=== PATIENT | male | born 1945 | race Caucasian/White ===

== ENCOUNTER → 2017-09-24 08:19 | Outpatient (CLI) | payer MEDICARE, BC, OTHER, SELFPAY ==
--- NOTE | 2017-09-24 08:25 | DI.RAD.S_ITS ---
PROCEDURE: XR KNEE RT 3V INDICATIONS: RIGHT KNEE PAIN TECHNIQUE: 3 views of the knee were acquired. COMPARISON: None. FINDINGS: Bones: No fractures or dislocations. No suspicious bony lesions. Marginal bone spurs with no apparent joint space narrowing. Soft tissues: Indeterminate for joint effusion. Possible Saucedo's cyst or other mass in the popliteal fossa. No suspicious soft tissue calcifications. IMPRESSION: 1. Marginal bone spurs indicating mild osteoarthritis. 2. Possible joint effusion, indeterminant. Possible Saucedo's cyst or other popliteal mass. Suggest limited lower extremity ultrasound. Dictated by: Sudarshan Walls M.D. on 09/24/2017 at 9:02 Approved by: Sudarshan Walls M.D. on 09/24/2017 at 9:04
[2017-09-24 10:47] LABS: BUN Creatinine Ratio 10.9 (6-22); Blood Urea Nitrogen 12 mg/dL (9-20); Calcium 9.2 mg/dL (8.4-10.2); Carbon Dioxide 26 mmol/L (22-32); Chloride 105 mmol/L (98-107); Cholesterol 202 mg/dL (140-199); Estimated Glomerular Filt Rate > 60.0 mL/min (>60); Glucose 109 mg/dL (80-110); HDL Cholesterol 49 mg/dL (40-60); HEMOLYSIS < 15 (0-50); LDL Cholesterol Calculated 121 mg/dL (<100); Potassium 4.7 mmol/L (3.4-5.1); Sodium 143 mmol/L (137-145); Triglycerides 161 mg/dL (35-150)
[2017-09-24 11:33] LABS: Vitamin B12 220 pg/mL (239-931)
== END ==
PROVIDERS: Family Provider Internal Medicine; PCP Internal Medicine; Visit Provider Internal Medicine
DX: I10 Essential (primary) hypertension (principal); E78.00 Pure hypercholesterolemia, unspecified; E53.8 Deficiency of other specified B group vitamins; M25.561 Pain in right knee
CPT/HCPCS: 36415; 73562; 80048; 80061; 82607

== ENCOUNTER → 2018-07-11 10:43 | Outpatient (CLI) | payer MEDICARE, BC, OTHER, SELFPAY ==
--- NOTE | 2018-07-11 | DI.RAD.S_ITS ---
PROCEDURE: XR KNEE RT 1TO2V INDICATIONS: RIGHT AND LEFT KNEE PAIN TECHNIQUE: 2 views of the right knee were acquired. COMPARISON: [facility], CR, XR KNEE RT 3V, 09/24/2017, 8:22. FINDINGS: Bones: No fractures or dislocations. No suspicious bony lesions. There is minimal thinning of the lateral compartment joint interspace consistent with minimal degenerative osteoarthritis but no joint effusion or intra-articular loose body is seen and no trauma is found. Soft tissues: No joint effusion. No suspicious soft tissue calcifications. IMPRESSION: Minimal degenerative change, no trauma or effusion seen. Dictated by: Aamir Kent M.D. on 07/11/2018 at 11:30 Approved by: Aamir Kent M.D. on 07/11/2018 at 11:31
--- NOTE | 2018-07-11 | DI.RAD.S_ITS ---
PROCEDURE: XR KNEE LT 1TO2V INDICATIONS: RIGHT AND LEFT KNEE PAIN TECHNIQUE: 2 views of the left knee were acquired. COMPARISON: [facility], CR, XR KNEE RT 3V, 09/24/2017, 8:22. FINDINGS: Bones: No fractures or dislocations. No suspicious bony lesions. Soft tissues: No joint effusion. No suspicious soft tissue calcifications. IMPRESSION: No acute disease, shortness of knee pain not found. No significant joint space narrowing or effusion identified. Dictated by: Aamir Kent M.D. on 07/11/2018 at 11:31 Approved by: Aamir Kent M.D. on 07/11/2018 at 11:32
== END ==
PROVIDERS: Family Provider Internal Medicine; PCP Internal Medicine; Visit Provider Internal Medicine
DX: M25.561 Pain in right knee (principal); M25.562 Pain in left knee
CPT/HCPCS: 73560

== ENCOUNTER → 2018-08-09 13:21 | Outpatient (CLI) | payer MEDICARE, BC, OTHER, SELFPAY ==
--- NOTE | 2018-08-09 | DI.NM.S_ITS ---
PROCEDURE: NM OLIVER PERF SPECT REST & STR Rest and exercise myocardial perfusion SPECT with gated imaging and ejection fraction RADIOPHARMACEUTICAL: 19.5 mCi Tc-99m sestamibi IV at rest and 26.9 mCi Tc-99m sestamibi IV at peak exercise. A two day-protocol was performed. INDICATIONS: CHEST PAIN TECHNIQUE: Radiopharmaceutical was injected at peak stress test, and also at rest. SPECT images were obtained. SPECT myocardial perfusion images were displayed in short axis, horizontal long axis, and vertical long axis views. Gated images were reviewed using [employer] software. COMPARISON: None. CARDIAC STRESS: A standard Mauro treadmill exercise tolerance test was performed by the patient under the supervision of an attending staff. The patient exercised for 5 minutes and 36 seconds; functional aerobic impairment (YSABEL) is +15% on sedentary scale. Hemodynamic data: There is normal heart rate response to exercise stress. Patient achieved 103% of maximum predicted heart rate at peak exercise. Hypertension at rest (BP 160/100mmHg) and borderline hypertensive response to exercise (BP 220/100mmHg). Symptoms: Patient denied chest pain during exercise. EKG: No diagnostic EKG changes of ischemia; no ectopy. FINDINGS: Raw data: There is good myocardial labeling by radiotracer. No significant motion artifacts. Kgty-fp-qiuea ratio is 0.29 (normal is less than 0.38 for sestamibi tracer, and less than 0.50 for thallium tracer). Left ventricle function: Gated images demonstrate normal left ventricle wall thickening. No segmental wall motion abnormality. No transient ischemic dilation; TID is 0.96 (normal less than 1.3). The left ventricle resting end-diastolic volume is 91 mL. Left ventricle stress ejection fraction is 71%; normal values are above 45%. Myocardial perfusion: There is normal distribution of activity in the left and right ventricular myocardium. No fixed or reversible perfusion defects. IMPRESSION: Low risk, normal treadmill nuclear stress test. Hypertension at rest and borderline hypertensive response to exercise. 1) No perfusion evidence of ischemia or infarction. 2) Normal left ventricular size, wall motion, and systolic function (EF post stress 71%). 3) No ECG evidence of ischemia. 4) No angina during the study. 5) Reduced exercise tolerance (7.0 METs, YSABEL +15%). Target heart rate achieved. 6) Hypertension at rest (BP 160/100mmHg) and borderline hypertensive response to exercise (BP 220/100mmHg). Dictated by: Jennifer Nunez MD on 08/13/2018 at 15:01 Approved by: Jennifer Nunez MD on 08/13/2018 at 15:07
--- NOTE | 2018-08-09 14:49 | P.PCN_ITS ---
Cardiac Stress Test Report Referral & Results Date Patient Seen: 08/09/18 Requesting provider: Xena Melara Indication: Chest pain Rest ECG: Unremarkable Procedure Note: Today following both written and verbal informed consent the patient was exercised according to a standard Mauro protocol patient went for a total of 5 minutes 36 seconds achieving a maximum heart rate of 150 to maximum systolic blood pressure of 220. This is approximately 7.0 METS. Exercise was terminated at this point because of targets were met. Patient was also given Cardiolite through a previously started Hep-Lock IV by the nuclear auxiliary operator approximately 1 minute prior to the cessation of exercise. There are no ST-T segment changes Patient quickly tachycardic and he was hypertensive throughout including at start Occasional multifocal PVCs and rare PACs were identified Functional aerobic impairment rated about 15% on the sedentary scale Impression: No ECG evidence of ischemia Borderline exercise capacity Hypertensive Please see perfusion imaging report as well Please note: Actual ECG tracings can be found in the PACS system.
== END ==
PROVIDERS: Family Provider Internal Medicine; PCP Internal Medicine; Visit Provider Internal Medicine
DX: R07.9 Chest pain, unspecified (principal); I10 Essential (primary) hypertension
CPT/HCPCS: 78452; 93016; 93017; 93018; A9502

== ENCOUNTER → 2019-01-31 09:45 | Outpatient (CLI) | payer MEDICARE, BC, OTHER, SELFPAY ==
[2019-01-31 11:03] LABS: BUN Creatinine Ratio 9.2 (6-22); Blood Urea Nitrogen 11 mg/dL (9-20); Calcium 9.6 mg/dL (8.4-10.2); Carbon Dioxide 27 mmol/L (22-32); Chloride 104 mmol/L (98-107); Cholesterol 229 mg/dL (140-199); Estimated Glomerular Filt Rate 59.2 mL/min (>60); Glucose 104 mg/dL (80-110); HDL Cholesterol 43 mg/dL (40-60); HEMOLYSIS < 15 (0-50); LDL Cholesterol Calculated 148 mg/dL (<100); Potassium 4.6 mmol/L (3.4-5.1); Sodium 140 mmol/L (137-145); Triglycerides 190 mg/dL (35-150)
[2019-01-31 11:51] LABS: Vitamin B12 907 pg/mL (239-931)
== END ==
PROVIDERS: PCP Internal Medicine; Visit Provider Internal Medicine
DX: Z12.5 Encounter for screening for malignant neoplasm of prostate (principal); E53.8 Deficiency of other specified B group vitamins; I10 Essential (primary) hypertension; E78.00 Pure hypercholesterolemia, unspecified
CPT/HCPCS: 36415; 80048; 80061; 82607; G0103

== ENCOUNTER → 2019-02-06 13:32 | Outpatient (CLI) | payer MEDICARE, BC, OTHER, SELFPAY ==
--- NOTE | 2019-02-06 | DI.US.S_ITS ---
PROCEDURE: US ARTERIAL DUPLEX LE LT INDICATIONS: PERIPHERAL VASCULAR DISEASE, UNSPECIFIED TECHNIQUE: Color and pulse Doppler interrogation was performed of the left lower extremity arterial system, with image documentation. COMPARISON: [facility], , ARTERIAL LOW.EXTREM.BILATERAL, 12/21/2014, 8:37. FINDINGS: Common femoral artery: 168 cm/sec, with triphasic flow. Deep femoral artery: 57 cm/sec, with biphasic flow. Proximal superficial femoral artery: 86 cm/sec, with triphasic flow. Mid superficial femoral artery: 90 cm/sec, with triphasic flow. Distal superficial femoral artery: 86 cm/sec, with triphasic flow. Popliteal artery: 56 cm/sec, with triphasic flow. Posterior tibial artery: 103 cm/sec, with biphasic flow. Anterior tibial artery/dorsalis pedis: 44 cm/sec, with triphasic flow. [place]-scale imaging description: Mild diffuse plaque IMPRESSION: No evidence of arterial insufficiency to the left lower extremity. Dictated by: Savanah Skelton M.D. on 02/06/2019 at 15:21 Approved by: Savanah Skelton M.D. on 02/06/2019 at 15:24
== END ==
PROVIDERS: PCP Internal Medicine; Visit Provider Internal Medicine
DX: I73.9 Peripheral vascular disease, unspecified (principal)
CPT/HCPCS: 93926

== ENCOUNTER 2019-07-28 22:36 | Emergency (ER) | payer MEDICARE, BC, OTHER, SELFPAY ==
[2019-07-28 22:36] VITALS: BP 139/65; PULSE 91; RESP 96; TEMP 36.5; O2SAT 96; BMI 30.1
--- NOTE | 2019-07-28 22:37 | ED.SYNCOPE ---
HPI - Syncope General Chief Complaint: Syncope Stated Complaint: Syncope Time Seen by Provider: 07/28/19 22:37 Source: patient and EMS Mode of arrival: EMS Limitations: no limitations History of Present Illness HPI narrative: 74-year-old male nonsmoker with history of hypertension and angina presents by EMS for evaluation of syncopal episode just prior to arrival. He was in the bathroom and heard a noise and found him slumped over the sink. He was still briefly unconscious when she arrived and then within a minute her to was back to his normal. EMS was activated and brought him here for evaluation. He states he has had diarrhea for the past 3 days and denies any recent travel, antibiotics, exposure to bad food or other ill persons. He denies any injury as a consequence of the fall. He states he was in his normal state of health prior to this episode. He denies any chest pain, palpitations or shortness of breath. MD complaint: loss of consciousness Onset (ago): minute(s) -: second(s) Prodromal symptoms: none Witnessed: no Context: standing up Current symptoms: none Treatments prior to arrival: IV fluids Related Data Home Medications Medication Instructions Recorded Confirmed amlodipine See Rx Instructions .ROUTE .COMPLEX 07/28/19 07/28/19 bimatoprost [Lumigan] See Rx Instructions .ROUTE .COMPLEX 07/28/19 07/28/19 brimonidine [Alphagan P] See Rx Instructions .ROUTE .COMPLEX 07/28/19 07/28/19 lisinopril See Rx Instructions .ROUTE .COMPLEX 07/28/19 07/28/19 Allergies Allergy/AdvReac Type Severity Reaction Status Date / Time No Known Drug Allergies Allergy Verified 07/28/19 22:57 Review of Systems Constitutional Constitutional: Denies chills, Denies fatigue, Denies fever(s), Denies frequent falls, Denies lethargy and Denies weakness Eyes Eyes: Denies change in vision, Denies eye discharge, Denies irritation and Denies loss of vision ENT Ears, Nose, Mouth, and Throat: Denies change in voice, Denies dizziness, Denies neck pain, Denies sore throat and Denies throat swelling Cardiovascular Cardiovascular: Denies chest pain, Denies irregular heart rhythm, Denies lightheadedness, Denies palpitations, Denies dyspnea, Denies dyspnea on exertion and Denies orthopnea Respiratory Respiratory: Denies cough, Denies dyspnea, Denies dyspnea on exertion and Denies wheezing Gastrointestinal Gastrointestinal: Denies abdominal pain, Denies change in bowel habits, Reports diarrhea, Denies nausea and Denies vomiting Musculoskeletal Musculoskeletal: Denies neck pain and Denies numbness Integumentary/Breasts Skin/Breast: Denies pruritus, Denies erythema, Denies rash and Denies wounds Neurologic Neurologic: Denies behavioral changes, Denies confusion, Denies dizziness, Denies frequent falls, Denies loss of vision, Denies numbness and Denies weakness Psychiatric Psychiatric: Denies anxiety, Denies behavioral changes, Denies confusion, Denies depression, Denies homicidal ideation and Denies suicidal ideation Endocrine Endocrine: Denies fatigue, Denies flushing and Denies palpitations Hematologic/Lymphatic Hematologic/Lymphatic: Denies easy bruising Allergic/Immunologic Allergic/Immunologic: Denies urticaria, Denies throat swelling and Denies wheezing Patient History Social History Smoking Status: Never smoker Smoking Status: Never smoker alcohol intake frequency: 0-2 drinks per day Substance Use Type: does not use Exam Narrative Exam Narrative: GENERAL: [74] year old patient appears stated age. Well-nourished, well-developed patient, in mild distress. HEAD: Atraumatic. Normocephalic. EYES: Pupils equal round and reactive. Extraocular motions intact. No scleral icterus. No injection or drainage. ENT: Dry mucous membranes Nose without bleeding, purulent drainage. Throat without erythema, tonsillar hypertrophy or exudate. Airway patent. NECK: Trachea midline. Non tender CARDIOVASCULAR: Regular rate and rhythm without murmurs, gallops, or rubs. RESPIRATORY: Clear to auscultation. Breath sounds equal bilaterally. No wheezes, rales, or rhonchi. GASTROINTESTINAL: Abdomen soft, non-tender, nondistended. EXTREMITIES: No edema or joint tenderness. BACK: Nontender without deformity or crepitance. No flank tenderness. NEURO: AOx3. SKIN: No rash or erythema of visible areas Initial Vital Signs Initial Vital Signs: Vital Signs Temperature 97.7 F 07/28/19 22:36 Pulse Rate 91 H 07/28/19 22:36 Respiratory Rate 96 H 07/28/19 22:36 Blood Pressure 139/65 07/28/19 22:36 Pulse Oximetry 96 07/28/19 22:36 Course Course Course Narrative: Patient able to ambulate through the department without difficulty. He feels at baseline and has no symptoms. Physical exam, labs and imaging are all very reassuring. Patient has had upwards of 5 days of diarrhea and had just walked to the bathroom when he had an episode. He denies any chest pain and has had no palpitations. He quickly returned to baseline after this episode. Other etiologies such as pulmonary embolism, cardiac arrhythmia considered but thought less likely given his history and physical. Extensive discussion regarding return precautions and the need for follow-up. Questions answered to his apparent satisfaction Orders Ordered: ED Orders 07/28/19 22:36 EKG-12 Lead Stat 07/28/19 22:44 Complete Blood Count AUTO DIFF Stat 07/28/19 23:10 Comprehensive Metabolic Panel Stat D Dimer Stat NT-proBNP (BNP-Adult 18+) Stat Troponin & CK Cardiac Panel Stat Discontinued Medications Sodium Chloride (Normal Saline 0.9%) 1,000 mls @ 1,000 mls/hr IV BOLUS ONE Stop: 07/28/19 23:35 Last Infusion: 07/29/19 00:34 Dose: 0 mls/hr Documented by: Infusion: 07/29/19 00:33 Dose: 0 mls/hr Documented by: Admin: 07/28/19 22:57 Dose: 1,000 mls/hr Documented by: NIKOLAS Vital Signs Vital signs: Vital Signs - 8 hr 07/28/19 22:36 07/28/19 23:27 07/28/19 23:56 Temperature 97.7 F Pulse Rate 91 H 80 86 Respiratory Rate 96 H 18 18 Blood Pressure 139/65 Blood Pressure [Left Arm] 116/63 141/70 H Pulse Oximetry 96 100 99 07/28/19 23:58 07/29/19 00:00 07/29/19 00:30 Temperature Pulse Rate 90 91 H 82 Respiratory Rate 18 18 20 Blood Pressure Blood Pressure [Left Arm] 157/68 H 132/68 152/72 H Pulse Oximetry 98 98 98 MDM - Syncope Lab Data Result diagrams: 07/28/19 22:44 07/28/19 23:10 Labs: Lab Results 07/28/19 07/28/19 07/28/19 Range/Units 22:44 23:10 23:10 WBC 6.7 (4.5-11.0) X10^3/uL RBC 4.56 (4.5-5.9) X10^6/uL Hgb 14.8 (13.5-17.5) g/dL Hct 42.9 (41-53) % MCV 94.0 (80-100) fL MCH 32.4 (26-34) PG MCHC 34.4 (30-36) % RDW 13.1 (11.6-14.8) % Plt Count 209 (150-400) X10^3/uL Neut % (Auto) 67.5 (50-75) % Lymph % (Auto) 24.5 L (25-40) % [place] % (Auto) 6.4 (3-14) % Eos % (Auto) 1.1 L (2-4) % Baso % (Auto) 0.5 (0-2) % Neut # (Auto) 4500 (2740-2900) /uL Lymph # (Auto) 1600 (9638-9830) /uL [place] # (Auto) 400 (0-900) /uL Eos # (Auto) 100 (0-450) /uL Baso # (Auto) 0 (0-100) /uL D-Dimer < 200 (<230) ng/mL Sodium 140 (137-145) mmol/L Potassium 3.4 (3.4-5.1) mmol/L Chloride 109 H (98-107) mmol/L Carbon Dioxide 22 (22-32) mmol/L BUN 10 (9-20) mg/dL Creatinine 1.13 (0.66-1.25) mg/dL Estimated GFR > 60.0 (>60) mL/min BUN/Creatinine Ratio 8.8 (6-22) Glucose 134 H (80-110) mg/dL Calcium 8.7 (8.4-10.2) mg/dL Total Bilirubin 0.4 (0.2-1.3) mg/dL AST 33 (17-59) IU/L ALT 26 (<50) IU/L Alkaline Phosphatase 63 (38-126) U/L Total Creatine Kinase 117 (55-170) U/L CK-MB (CK-2) 1.44 (<2.37) ng/mL CK-MB (CK-2) Rel Index 1.2 L (1.5-5.0) % Troponin I < 0.012 (0.01-0.034) ng/mL NT-Pro-B Natriuret Pep 26 (<125) pg/mL Total Protein 7.0 (6.3-8.2) g/dL Albumin 4.1 (3.5-5.0) g/dL Globulin 2.9 (1.7-4.1) g/dL Albumin/Globulin Ratio 1.4 (1.0-2.8) Point of Care Testing Glucose POC 97 Urine Dip Bedside Urine Glucose Negative Bedside Urine Bilirubin - Negative Bedside Urine Ketone +/- 5 Urine Specific [place] 1.020 Bedside Urine Occult Blood - Negative Bedside Urine pH 6.0 Bedside Urine Protein +/- 15 Bedside Urine Urobilinogen - Negative Bedside Urine Nitrite - Negative Bedside Urine Leukocytes - Negative Esterase ECG Data Attestation: I personally reviewed and interpreted this ECG as follows: Prior ECG tracings: not available for review Interpretation: NSR small Qs in inferior leads. No ST segmental elevations or depressions. Discharge Plan Departure Patient Disposition: Home Clinical Impression: Syncope due to orthostatic hypotension Discharge Date/Time: 07/29/19 00:55 Instructions: Fainting Activity Restrictions/Additional Instructions: *You have been diagnosed with [ syncope, likely from recent diarrhea and using toilet ] *What to do: *Take medications as directed *Follow up with your primary care provider in 2-3 days, call for an appointment. Let them know you were seen in the Emergency Department and that we ask that you be seen in follow up *Return to ER if you should have any new, worsening or concerning symptoms Prescriptions: No Action brimonidine [Alphagan P] 0.15 % drops See Rx Instructions .ROUTE .COMPLEX RF: 0 amlodipine 5 mg tablet See Rx Instructions .ROUTE .COMPLEX RF: 0 lisinopril 20 mg tablet See Rx Instructions .ROUTE .COMPLEX RF: 0 Lumigan 0.01 % drops See Rx Instructions .ROUTE .COMPLEX RF: 0 Referrals: Xena Melara MD [Primary Care Provider] -
[2019-07-28 22:53] LABS: Add Manual Diff / Slide Review NO; Basophils Absolute Auto 0 /uL (0-100); Basophils Percent Auto 0.5 % (0-2); Eosinophils Absolute Auto 100 /uL (0-450); Eosinophils Percent Auto 1.1 % (2-4); Hematocrit 42.9 % (41-53); Hemoglobin 14.8 g/dL (13.5-17.5); Lymphocytes Absolute Auto 1600 /uL (1100-4500); Lymphocytes Percent Auto 24.5 % (25-40); Mean Corpuscular HGB Conc 34.4 % (30-36); Mean Corpuscular Hemoglobin 32.4 PG (26-34); Monocytes Absolute Auto 400 /uL (0-900); Monocytes Percent Auto 6.4 % (3-14); Neutrophils Absolute Auto 4500 /uL (1500-7000); Neutrophils Percent Auto 67.5 % (50-75); Platelet Count 209 X10^3/uL (150-400); Red Blood Cell Count 4.56 X10^6/uL (4.5-5.9); Red Cell Distribution Width 13.1 % (11.6-14.8); White Blood Cell Count 6.7 X10^3/uL (4.5-11.0)
[2019-07-28] MEDS: SODIUM CHLORIDE 0.9% 1,000 ML 1000 ML IV (22:57)
[2019-07-28 23:27] VITALS: BP 116/63; PULSE 80; RESP 18; O2SAT 100
[2019-07-28 23:31] LABS: Alanine Aminotransferase 26 IU/L (<50); Albumin 4.1 g/dL (3.5-5.0); Albumin Globulin Ratio 1.4 (1.0-2.8); Alkaline Phosphatase 63 U/L (38-126); Aspartate Aminotransferase 33 IU/L (17-59); BUN Creatinine Ratio 8.8 (6-22); Bilirubin Total 0.4 mg/dL (0.2-1.3); Blood Urea Nitrogen 10 mg/dL (9-20); Calcium 8.7 mg/dL (8.4-10.2); Carbon Dioxide 22 mmol/L (22-32); Chloride 109 mmol/L (98-107); Creatine Kinase 117 U/L (55-170); Estimated Glomerular Filt Rate > 60.0 mL/min (>60); Globulin 2.9 g/dL (1.7-4.1); Glucose 134 mg/dL (80-110); HEMOLYSIS 15 (0-50); Potassium 3.4 mmol/L (3.4-5.1); Sodium 140 mmol/L (137-145)
[2019-07-28 23:43] LABS: NT-proBNP (BNP-Adult 18+) 26 pg/mL (<125); Troponin I < 0.012 ng/mL (0.01-0.034)
[2019-07-28 23:46] LABS: CKMB % Relative Index 1.2 % (1.5-5.0); Creatine Kinase MB 1.44 ng/mL (<2.37)
[2019-07-28 23:56] VITALS: BP 141/70; PULSE 86; RESP 18; O2SAT 99
[2019-07-28 23:58] VITALS: BP 157/68; PULSE 90; RESP 18; O2SAT 98
[2019-07-28 23:58] LABS: D Dimer < 200 ng/mL (<230)
[2019-07-29] VITALS: BP 132/68; PULSE 91; RESP 18; O2SAT 98
--- NOTE | 2019-07-29 00:16 | PC.NURSE ---
Pt denies any dizziness/feeling lightheaded or any sx's at this time during orthostatics.
--- NOTE | 2019-07-29 00:17 | PC.NURSE ---
Pt ambulated over 50 feet with steady gait, denies feeling dizzy/lightheaded during ambulation. Pt assisted back to ED stretcher and placed back on continuous cardiac, pulse-ox, and BP monitor. ED provider Dr. Uribe made aware.
[2019-07-29 00:30] VITALS: BP 152/72; PULSE 82; RESP 20; O2SAT 98
== END 2019-07-29 00:55 | disposition home or self-care (01) ==
PROVIDERS: Emergency Provider Emergency Medicine; PCP Internal Medicine
DX: I95.1 Orthostatic hypotension (principal)
CPT/HCPCS: 36415; 80053; 81003; 82550; 82553; 83880; 84484; 85025; 85379; 93005; 96360; 96361; 99284

== ENCOUNTER → 2019-08-31 14:14 | Outpatient (CLI) | payer MEDICARE, BC, OTHER, SELFPAY ==
[2019-09-01 07:57] LABS: COVID19 Sendout Not Detected (Not Detect)
== END ==
PROVIDERS: PCP Internal Medicine; Visit Provider Physician Assistant
DX: Z01.818 Encounter for other preprocedural examination (principal)
CPT/HCPCS: 87635

== ENCOUNTER 2019-09-03 13:24 | Day surgery (SDC) | payer MEDICARE, BC, OTHER, SELFPAY ==
[2019-09-03] VITALS (7 sets, daily range): BP systolic 114–134; BP diastolic 67–73; PULSE 76–85; RESP 10–20; TEMP 36.1–37.3; O2SAT 92–97; BMI 31.5
--- NOTE | 2019-09-03 | PATH_ITS ---
[facility] Accession Number: [id number] . 01 Material submitted: . PART A: colon - COLON POLYPS X3 TRANSVERSE COLON 65CM PART B: colon - RANDOM COLON BIOPSIES PART C: colon - RIGHT COLON POLYP . 01 Clinical history: . COLONOSCOPY . 02 Diagnosis: A. 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 No evidence of malignancy or high-grade dysplasia. . B. Random Colon, Biopsies: Colonic mucosa with no diagnostic abnormality. Negative for active, chronic, and microscopic colitis. Negative for dysplasia and malignancy. . C. Right Colon, Polyp, Biopsy: Tubular adenoma. V 09/04/2019 1403 Local . 02 Electronically signed: . Nida Rice MD, Pathologist NPI- [id number] . 01 Gross description: . Part A: COLON POLYPS X3 TRANSVERSE COLON 65CM: Received in formalin are multiple fragment(s) of guerrero, soft tissue measuring 1.0 x 0.8 x 0.3 cm in aggregate submitted entirely in 1 cassette(s) Part B: RANDOM COLON BIOPSIES: Received in formalin are 5 fragment(s) of guerrero, soft tissue measuring 1.0 x 0.2 x 0.1 cm to 0.2 x 0.2 x 0.1 cm submitted entirely in 1 cassette(s) Part C: RIGHT COLON POLYP: Received in formalin are 2 fragment(s) of guerrero, soft tissue measuring 0.3 x 0.3 x 0.2 cm to 0.3 x 0.2 x 0.1 cm submitted entirely in 1 cassette(s) /QBJ 09/04/2019 0153 Local . 02 Pathologist provided ICD-10: R19.7, D12.3, D12.6 . 02 CPT . 972247, 618330, 206271 Performed at: [address] [facility] [address] [address] [address], [place], [place] [id number] MD Kody Douglas MD Phone: [phone] Performed at: [address] [facility] [address] [address] [place], [place] [id number] MD Nida Rice MD Phone: [phone]
[2019-09-03] MEDS: SODIUM CHLORIDE 0.9% 1,000 ML 150 ML IV (14:03)
--- NOTE | 2019-09-03 14:42 | PM.PREOP ---
Pre-operative Note COVID-19 COVID-19 status: Negative Interval Note History & Physical reviewed/Exam performed by Physician: Yes Changes to H&P: No ASA Class (for procedural sedation): II
--- NOTE | 2019-09-03 14:43 | PM.OP.ENDO ---
Operative Date/Time/Diagnoses Date of procedure: 09/03/19 Time of procedure: 14:43 Pre-op diagnosis: See indication and findings Procedure & Clinicians Study performed: Colonoscopy with biopsy Same procedure as scheduled: Yes Indications: Diarrhea Surgeon: Latasha Avalos Procedure Notes Procedure in detail: After informed consent was obtained the patient was placed in left lateral decubitus position. The video colonoscope was introduced the rectum slowly advanced cecum. Preparation was good. On slow withdrawal mucosa was carefully examined. The scope was removed. The patient tolerated procedure well. Blood loss none Complications none Sedation Total sedation time 25 minutes Fentanyl 100 mg Versed 5 mg IV titration Findings 1. Normal colonic mucosa throughout the colon. Random biopsies taken to rule out microscopic colitis 2. Unable to easily enter the terminal ileum 3. 10 mm sessile right colon polyp hot snared removed completely 2. Three polyps at 65 cm/distal transverse colon. One was 15-18 mm in size and was snared in piecemeal in removed. Another was 8 mm sized and this was hot snared removed completely. The 3rd was 5 mm in was snared cold snare cold snared and removed completely. 5. Extensive sigmoid diverticulosis Pending the results of the biopsies he may need to come back in earlier than 5 years. We will be in touch regarding the biopsies done for diarrhea.
[2019-09-03] MEDS: MIDAZOLAM 5 MG/5 ML VIAL IV (14:46)
[2019-09-03] MEDS: fentaNYL 250 MCG/5 ML INJ IV (14:46)
== END 2019-09-03 16:26 | disposition home or self-care (01) ==
PROVIDERS: PCP Internal Medicine; Referring Provider Internal Medicine Gastroenterology; Visit Provider Internal Medicine Gastroenterology
PROC: 0DJD8ZZ Inspection of Lower Intestinal Tract, Via Natural or Artificial Opening Endoscopic (ICD-10-PCS; CPT 45378; principal; 2019-09-03 14:30)
DX: R19.7 Diarrhea, unspecified (principal); I10 Essential (primary) hypertension; D12.3 Benign neoplasm of transverse colon; K57.30 Diverticulosis of large intestine without perforation or abscess without bleeding; D12.6 Benign neoplasm of colon, unspecified
CPT/HCPCS: 45385; 45384; J2250; J3010

== ENCOUNTER → 2020-05-11 17:20 | Outpatient (CLI) | payer MEDICARE, BC, OTHER, SELFPAY ==
--- NOTE | 2020-05-11 | DI.MRI.S_ITS ---
PROCEDURE: MR HEAD/BRAIN WO CON INDICATIONS: Ataxia, unspecified TECHNIQUE: Non-contrast axial T1 spin echo, axial T2 fast spin echo, sagittal and axial FLAIR, coronal T2 fast spin echo, axial gradient echo, axial diffusion and ADC through the brain. COMPARISON: None. FINDINGS: Image quality: Excellent. CSF spaces: Ventricles appear symmetric in size and shape. Basal cisterns are patent. No extra-axial fluid collections. Brain: No intracranial mass effects. There is cerebral volume loss for age. There are periventricular and deep white matter chronic small vessel ischemic changes. Brainstem appears normal. Diffusion-weighted images show no acute ischemic insults. No chronic ischemic insults. Normal intravascular flow voids are present. Numerous foci of susceptibility artifact can be seen, as on series 10 Skull and face: Calvarial bone marrow is normal in signal. Orbits are normal. Sinuses: Sinuses and mastoids are clear. Mild to moderate rightward nasal septal deviation is incidentally noted. IMPRESSION: Numerous areas of susceptibility artifact can be seen, which is consistent with scattered small areas of prior hemorrhage. Please consider amyloid angiopathy versus vasculitis. Differential diagnosis would also include prior trauma, yet this is considered to be less likely. Note is made of age-appropriate brain parenchymal volume loss and chronic small vessel ischemic changes. No findings of acute or subacute infarction can be seen. Dictated by: Jose Guadalupe Nguyen M.D. on 05/11/2020 at 17:23 Approved by: Jose Guadalupe Nguyen M.D. on 05/11/2020 at 17:25
== END ==
PROVIDERS: PCP Internal Medicine; Referring Provider Internal Medicine; Visit Provider Internal Medicine
DX: R27.0 Ataxia, unspecified (principal); J34.2 Deviated nasal septum
CPT/HCPCS: 70551

== ENCOUNTER → 2020-05-31 13:32 | Outpatient (CLI) | payer MEDICARE, BC, OTHER, SELFPAY ==
--- NOTE | 2020-05-31 | DI.ECHO.S_ITS ---
[facility]---------+ [facility] +---------+ : : [id number] . : : : : [place] : : : : [id number] : : : : Phone: [phone]+ Echocardiogram Report + + :Name: PAULINE OROPEZA Study Date: 05/31/2020 Height: 70 in : :[facility] ReadingLocation: Weight: 210 lb : : Gender: Male BSA: 2.1 m2 : :: 1945 Age: 75 yrs BP: 136/88 mmHg: :Reason For Study: MURMUR : :Ordering Physician: MILLIE, : :TAMY Performed By: Sruthi Vázquez : :Referring: TAMY PINTO : + + Interpretation Summary 1) Normal left ventricular size, wall motion, and systolic function (EF 65- 70%). 2) Normal right ventricular size and function. 3) There is mild to moderate aortic stenosis (valve area 1.5cm2, mean gradient 23mmHg, severity ratio 0.5). 4) Calcific mitral valve with mild inflow gradient (mean 4.8mmHg). 5) No prior Echo available for comparison. Procedure: A two-dimensional transthoracic echocardiogram with color flow and Doppler was performed. The study quality was technically adequate. There is no prior echocardiogram noted for this patient. The patient was in sinus rhythm with heart rates between 82-93 bpm during the exam. Left Ventricle: The left ventricle is normal in size. Left ventricular wall thickness is mildly increased. The ejection fraction is estimated to be 65- 70%. Left ventricular systolic function appears normal without focal wall motion abnormalities. Right Ventricle: The right ventricle is normal in size and function. Atria: Both atria are normal in size. There is no Doppler evidence for an interatrial shunt. Mitral Valve: There is mild mitral annular calcification. The mitral valve leaflets are mildly calcified. The mitral valve mean gradient is 4.8 mmHg. There is trace mitral regurgitation. Aortic Valve: The aortic valve is trileaflet. The aortic valve is moderately calcified. There is mildly reduced leaflet mobility. The peak aortic velocity is 3.1 m/sec. The aortic valve mean gradient is 23 mmHg. There is mild to moderate aortic stenosis. No aortic regurgitation is present. Tricuspid Valve: The tricuspid valve is normal in structure and function. There is trace tricuspid regurgitation. Pulmonary artery pressures cannot be estimated because of the lack of a measurable TR jet velocity but the IVC suggests a CVP of around 3 mmHg. Pulmonic Valve: The pulmonic valve leaflets are thin and pliable; valve motion is normal. There is trace pulmonic regurgitation. Great Vessels: The aortic root is normal size. The ascending aorta is at the upper limits of normal in size. The IVC is of normal diameter and collapses greater than 50% with a sniff. This suggests a low right atrial pressure of 3 mm Hg. Pericardium/ Pleura There is no pericardial effusion. There is no pleural effusion. MMode/2D Measurements & Calculations LVIDd: 3.6 cm LVOT diam: 2.0 cm LVIDs: 2.3 cm Ao root diam: 3.4 cm FS: 37.7 % asc Aorta Diam: 4.0 cm EPSS: 0.93 cm IVSd: 1.3 cm LVPWd: 0.80 cm LV cantu. diameter/BSA (cm/m^2): 1.7 LV sys. diameter/BSA (cm/m^2): 1.1 LA A2 area: 21.9 cm2 RA long axis: 4.9 cm LA A4 area: 13.0 cm2 RA area: 13.5 cm2 LA length (vol): 4.6 cm RA vol: 31.4 ml LA vol: 52.7 ml RA : 14.7 ml/m2 LA vol index: 24.7 ml/m2 IVC diam: 1.4 cm RVD1 (basal): 3.1 cm TAPSE: 2.2 cm Doppler Measurements & Calculations Ao V2 max: 306.6 cm/sec LVOT Max Schuyler: 150.1 cm/sec Ao V2 mean: 218.1 cm/sec LV V1 max P.0 mmHg Ao max P.5 mmHg LV V1 VTI: 31.5 cm Ao mean P.0 mmHg MOHSEN(I,D): 1.5 cm2 Ao V2 VTI: 63.4 cm MOHSEN(V,D): 1.5 cm2 sev ratio: 0.50 MOHSEN indexed to BSA (cm^2/m^2): 0.71 MV E max schuyler: 111.3 cm/sec PA V2 max: 111.9 cm/sec MV A max schuyler: 160.3 cm/sec PA V2 mean: 75.3 cm/sec MV E/A: 0.69 PA mean P.6 mmHg Med Peak E' Schuyler: 4.5 cm/sec PA pr(Accel): 32.8 mmHg E/E' med: 24.6 Lat Peak E' Schuyler: 5.2 cm/sec E/E' lat: 21.4 E/e' average: 23.0 MV dec time: 0.42 sec MVA(VTI): 2.3 cm2 MV V2 mean: 98.8 cm/sec SV(LVOT): 96.6 ml MV mean P.8 mmHg MV V2 VTI: 42.8 cm Reading Physician:03:08 PM
== END ==
PROVIDERS: PCP Internal Medicine; Referring Provider Internal Medicine; Visit Provider Internal Medicine
DX: I35.0 Nonrheumatic aortic (valve) stenosis (principal); R06.00 Dyspnea, unspecified
CPT/HCPCS: 93306

== ENCOUNTER → 2020-06-30 12:46 | Outpatient (CLI) | payer MEDICARE, BC, OTHER, SELFPAY ==
[2020-06-30 16:12] LABS: Vitamin B12 820 pg/mL (239-931)
== END ==
PROVIDERS: PCP Internal Medicine; Referring Provider Internal Medicine; Visit Provider Internal Medicine
DX: E53.8 Deficiency of other specified B group vitamins (principal)
CPT/HCPCS: 36415; 82607

== ENCOUNTER → 2021-09-07 11:18 | Outpatient (CLI) | payer MEDICARE, BC, OTHER, SELFPAY ==
--- NOTE | 2021-09-07 11:24 | DI.MRI.S_ITS ---
PROCEDURE: MR HEAD/BRAIN WO CON INDICATIONS: OTHER AMNESIA TECHNIQUE: Non-contrast axial T1 spin echo, axial T2 fast spin echo, sagittal and axial FLAIR, coronal T2 fast spin echo, axial gradient echo, axial diffusion and ADC through the brain. COMPARISON: [facility], , MR HEAD/BRAIN WO CON, 05/11/2020, 17:53. FINDINGS: Image quality: Excellent. CSF spaces: Ventricles appear symmetric in size and shape. Basal cisterns are patent. No extra-axial fluid collections. Brain: Multiple areas of abnormal hemosiderin signal can be seen involving both cerebral hemispheres, which are primarily seen peripherally and are slightly more prominent on the right than on the left these are not significantly changed compared to the 05/11/2020 examination. No intracranial mass effects. There is cerebral volume loss for age. There are periventricular and deep white matter chronic small vessel ischemic changes. Brainstem appears normal. Diffusion-weighted images show no acute ischemic insults. No chronic ischemic insults. Normal intravascular flow voids are present. Symmetric calcification can be seen involving the basal ganglia, which is considered to be normal for age. Skull and face: Calvarial bone marrow is normal in signal. Orbits are normal. A left lens placement can be seen. Sinuses: Sinuses and mastoids are clear. IMPRESSION: Stable small areas of hemorrhage are again seen, which are not significantly changed compared to the prior examination. These are nonspecific. Please consider embolized angiopathy and vasculitis. Dictated by: Jose Guadalupe Nguyen M.D. on 09/07/2021 at 11:34 Approved by: Jose Guadalupe Nguyen M.D. on 09/07/2021 at 11:36
== END ==
PROVIDERS: PCP Internal Medicine; Referring Provider Psychiatry & Neurology Neurology; Visit Provider Psychiatry & Neurology Neurology
DX: R41.3 Other amnesia (principal); R90.89 Other abnormal findings on diagnostic imaging of central nervous system
CPT/HCPCS: 70551

== ENCOUNTER → 2022-03-31 16:26 | Outpatient (CLI) | payer MEDICARE, BC, OTHER, SELFPAY ==
--- NOTE | 2022-03-31 | DI.US.S_ITS ---
PROCEDURE: US ARTERIAL DUPLEX LE INDICATIONS: PERIPHERAL VASCULAR DISEASE, UNSPECIFIED TECHNIQUE: Color and pulse Doppler interrogation was performed of both lower extremity arterial systems, with image documentation. COMPARISON: [facility], , US ARTERIAL DUPLEX LE , 02/06/2019, 14:02. FINDINGS: Right lower extremity: Common femoral artery: 85 cm/sec, with biphasic flow. Deep femoral artery: 61 cm/sec, with biphasic flow. Proximal superficial femoral artery: 109 cm/sec, with triphasic flow. Mid superficial femoral artery: 89 cm/sec, with biphasic flow. Distal superficial femoral artery: 65 cm/sec, with biphasic flow. Popliteal artery: 54 cm/sec, with biphasic flow. Posterior tibial artery: 84 cm/sec, with biphasic flow. Anterior tibial artery/dorsalis pedis: 43 cm/sec, with biphasic flow. Reno-scale imaging description: Mild atherosclerotic plaquing Left lower extremity: Common femoral artery: 101 cm/sec, with biphasic flow. Deep femoral artery: 54 cm/sec, with biphasic flow. Proximal superficial femoral artery: 74 cm/sec, with biphasic flow. Mid superficial femoral artery: 90 cm/sec, with biphasic flow. Distal superficial femoral artery: 88 cm/sec, with biphasic flow. Popliteal artery: 54 cm/sec, with biphasic flow. Posterior tibial artery: 80 cm/sec, with biphasic flow. Anterior tibial artery/dorsalis pedis: 40 cm/sec, with biphasic flow. [place]o-scale imaging description: Mild atherosclerotic plaque IMPRESSION: Mild atherosclerotic plaque results in biphasic waveforms without significant focal stenosis, reflecting mild peripheral vascular disease Approved by: Ajit Foley M.D. on 03/31/2022 at 18:08
== END ==
PROVIDERS: PCP Internal Medicine; Referring Provider Podiatrist; Visit Provider Podiatrist
DX: I73.9 Peripheral vascular disease, unspecified (principal)
CPT/HCPCS: 93925

== ENCOUNTER → 2023-01-02 09:28 | Outpatient (CLI) | payer MEDICARE, BC, OTHER, SELFPAY ==
--- NOTE | 2023-01-02 | DI.NM.S_ITS ---
PROCEDURE: NM OLIVER PERF SPECT R&S PHARM Rest and pharmacological stress myocardial perfusion SPECT with gated imaging and ejection fraction RADIOPHARMACEUTICAL: 9.4 mCi Tc-99m tetrafosmin IV at rest and 26.1 mCi Tc-99m tetrafosmin IV at peak effect of pharmacological stress. A [id number] was performed. INDICATIONS: Paroxysmal atrial fibrillation TECHNIQUE: Radiopharmaceutical was injected at peak stress test, and also at rest. SPECT images were obtained. SPECT myocardial perfusion images were displayed in short axis, horizontal long axis, and vertical long axis views. Gated images were reviewed using Tissue Regenix software. COMPARISON: None. CARDIAC STRESS: A pharmacologic stress test was performed under the supervision of an attending staff, using an infusion of regadenoson 0.4 mg IV. Hemodynamic data: There is normal blood pressure and heart rate response to pharmacologic stress. Symptoms: The patient denied anginal chest pain. EKG: No diagnostic changes of ischemia; no ectopy. FINDINGS: Raw data: There is good myocardial uptake of radiotracer. No significant motion artifacts. [place]axc-tq-gdetp ratio is 0.38 (normal is less than 0.38 for tetrafosmin tracer). Left ventricle function: Gated images demonstrate normal left ventricular wall thickening. No segmental wall motion abnormalities. No transient ischemic dilation; TID is 1.17 (normal less than 1.3). Left ventricle resting end diastolic volume is 78 mL. Left ventricle stress ejection fraction is >75%; normal range is above 45%. Myocardial perfusion: There is a medium size, mild intensity basal to mid inferoseptal wall defect seen only in the rest images. No fixed or reversible perfusion defects. IMPRESSION: Low risk study. No evidence of pharmacologic induced ischemia or scar. Normal LV size with hyperdynamic function. Dictated by: Hellen Pat D.O. on 01/03/2023 at 13:12 Approved by: Hellen Pat D.O. on 01/03/2023 at 13:15
== END ==
PROVIDERS: PCP Internal Medicine; Referring Provider Internal Medicine Cardiovascular Disease; Visit Provider Internal Medicine Cardiovascular Disease
DX: I48.0 Paroxysmal atrial fibrillation (principal)
CPT/HCPCS: 78452; 93017; A9502; J2785

== ENCOUNTER → 2023-03-29 11:23 | Outpatient (CLI) | payer MEDICARE, BC, OTHER, SELFPAY ==
--- NOTE | 2023-03-29 11:26 | DI.MRI.S_ITS ---
PROCEDURE: MR HEAD/BRAIN WO CON INDICATIONS: Other amnesia TECHNIQUE: Non-contrast axial T1 spin echo, axial T2 fast spin echo, sagittal and axial FLAIR, coronal T2 fast spin echo, axial gradient echo, axial diffusion and ADC through the brain. COMPARISON: [facility], MR, MR HEAD/BRAIN WO CON, 09/07/2021, 12:03. [facility], MR, MR HEAD/BRAIN WO CON, 05/11/2020, 17:53. FINDINGS: Image quality: Excellent. CSF spaces: Ventricles appear symmetric in size and shape. Basal cisterns are patent. No extra-axial fluid collections. Brain: No intracranial bleeds or mass effects. There is cerebral volume loss for age. There are moderate prominent periventricular and deep white matter chronic small vessel ischemic changes. Brainstem appears normal. Diffusion-weighted images show no acute infarct. No chronic ischemic insults. Normal intravascular flow voids are present. Skull and face: Calvarial bone marrow is normal in signal. Orbits are normal. Note is made of bilateral lens replacements. Sinuses: Sinuses and mastoids are clear. IMPRESSION: Age-appropriate brain parenchymal volume loss is seen. Moderate to prominent chronic small vessel ischemic change can be seen. Numerous foci of hemosiderin deposition can be seen, which are primarily seen peripherally, which are similar to the prior examination. The appearance is nonspecific, although please consider amyloid angiopathy and prior trauma. No findings of acute or subacute infarction can be seen. No prior territorial infarct can be seen. Dictated by: Jose Guadalupe Nguyen M.D. on 03/29/2023 at 14:43 Approved by: Jose Guadalupe Nguyen M.D. on 03/29/2023 at 14:46
--- NOTE | 2023-03-29 11:26 | DI.RAD.S_ITS ---
PROCEDURE: FL JOINT INJECTION LARGE LT INDICATIONS: osteoarthritis, left hip COMPARISON: None. TECHNIQUE: The indications, alternatives, benefits, risks, and complications of the procedure were explained to the patient. Written informed consent was obtained and placed in the chart. The patient was placed in an appropriate position on the fluoroscopy table, and a site was chosen for percutaneous access under fluoroscopic guidance. The site was prepped and draped in a sterile fashion. Local anesthetic was administered using a 1% lidocaine solution. A hypodermic or spinal needle was then used to access the symptomatic joint. Intra-articular location of the needle tip was confirmed by injecting a small amount of contrast, followed by steroid administration. The needle was then withdrawn, and a bandage applied to the puncture site. FINDINGS: Joint injected: Left hip Medications injected: 4 mL of 40 mg/mL Kenalog and 0.5% Ropivacaine mixture. Patient's pain before injection: 4 out of 10. Patient's pain after injection: 0 out of 10. Complications: None. IMPRESSION: Successful fluoroscopically guided administration of steroid and anaesthetic solution into the left hip joint. Approved by: Mauricio Wise M.D. on 03/29/2023 at 14:46
[2023-03-29] MEDS: LIDOCAINE 1% 20 ML INJ (13:35)
[2023-03-29] MEDS: ROPIVACAINE 0.5% PF 5 MG/ML 20ML VIAL 20 ML INJ (13:36)
[2023-03-29] MEDS: TRIAMCINOLONE 40 MG/ML VIAL INTRA-ARTI (13:36)
== END ==
LOC: RAD 11:24
PROVIDERS: PCP Internal Medicine; Referring Provider Physician Assistant Surgical; Visit Provider Physician Assistant Surgical
DX: R41.3 Other amnesia (principal); M16.12 Unilateral primary osteoarthritis, left hip
CPT/HCPCS: 20610; 70551; 77002

== ENCOUNTER → 2023-06-06 11:53 | Outpatient (CLI) | payer MEDICARE, BC, OTHER, SELFPAY ==
[2023-06-06 13:27] LABS: Add Manual Diff / Slide Review NO; Basophils Absolute Auto 0 /uL (0-100); Basophils Percent Auto 0.3 % (0-2); Eosinophils Absolute Auto 100 /uL (0-450); Eosinophils Percent Auto 0.9 % (2-4); Hematocrit 40.5 % (41-53); Hemoglobin 13.9 g/dL (13.5-17.5); Lymphocytes Absolute Auto 1000 /uL (1100-4500); Lymphocytes Percent Auto 16.2 % (25-40); Mean Corpuscular HGB Conc 34.4 % (30-36); Mean Corpuscular Hemoglobin 31.7 PG (26-34); Monocytes Absolute Auto 500 /uL (0-900); Monocytes Percent Auto 8.7 % (3-14); Neutrophils Absolute Auto 4400 /uL (1500-7000); Neutrophils Percent Auto 73.9 % (50-75); Platelet Count 224 X10^3/uL (150-400); Red Cell Distribution Width 13.9 % (11.6-14.8)
[2023-06-06 13:32] LABS: Hemoglobin A1C% w Est Avg Glu 5.6 % (4.0-6.0)
[2023-06-06 13:43] LABS: Albumin 4.4 g/dL (3.5-5.0); BUN Creatinine Ratio 12.8 (6-22); Blood Urea Nitrogen 12 mg/dL (9-20); Calcium 9.1 mg/dL (8.4-10.2); Carbon Dioxide 28 mmol/L (22-32); Chloride 105 mmol/L (98-107); Estimated Glomerular Filt Rate > 60 mL/min (>60); Glucose 90 mg/dL (80-110); HEMOLYSIS < 15 (0-50); Sodium 138 mmol/L (137-145)
[2023-06-06 13:51] LABS: Prealbumin 27.7 mg/dL (17.6-36.0)
[2023-06-06 16:49] LABS: Vitamin D 25 Hydroxy (D3) 37.8 ng/mL (30.0-100.0)
== END ==
PROVIDERS: PCP Internal Medicine; Referring Provider Orthopaedic Surgery Adult Reconstructive Orthopaedic Surgery; Visit Provider Orthopaedic Surgery Adult Reconstructive Orthopaedic Surgery
DX: Z01.818 Encounter for other preprocedural examination (principal); E55.9 Vitamin D deficiency, unspecified; R73.9 Hyperglycemia, unspecified; R77.0 Abnormality of albumin; Z01.812 Encounter for preprocedural laboratory examination
CPT/HCPCS: 36415; 80048; 82040; 82306; 83036; 84134; 85025; 93005

== ENCOUNTER → 2023-06-13 10:20 | Outpatient (CLI) | payer MEDICARE, BC, OTHER, SELFPAY ==
--- NOTE | 2023-06-13 10:21 | DI.RAD.S_ITS ---
PROCEDURE: XR DEXA AXIAL SKELETON INDICATIONS: LEFT HIP PAIN COMPARISON: None. FINDINGS: Lumbar Spine: Bone mineral density 1.627 g/cm2, T score 5.2. Left Hip: Bone mineral density 0.959 g/cm2, T score 0.1. Left Femoral Neck: Bone mineral density 0.853 g/cm2, T score 0.0. Right Hip: Bone mineral density 1.001 g/cm2, T score 0.5. Right Femoral Neck: Bone mineral density 0.837 g/cm2, T score -0.1. Fracture Risk Calculation (when applicable): Not provided due to bone mineral density within normal limits. (T score greater or equal to -1.0 to: NORMAL) (T score from -1.1 to -2.4: OSTEOPENIA) (T score less than or equal to -2.5: OSTEOPOROSIS) IMPRESSION: Bone mineral density is within normal limits. Follow-up guidelines as follows: Osteoporosis: Consider a repeat DEXA and Vertebral Fracture Assessment (VFA) exam in 2 years or sooner if medically necessary, to reassess this patient's status. Osteopenia: Consider a repeat DEXA in 2-3 years to reassess this patient's status, or if there is a new clinical indication. Normal: Consider a repeat DEXA in 5 years or sooner, or if there is a new clinical indication. Dictated by: Geremias Wolf M.D. on 06/13/2023 at 12:03 Approved by: Geremias Wolf M.D. on 06/13/2023 at 12:05
== END ==
LOC: RAD 10:21
PROVIDERS: PCP Internal Medicine; Referring Provider Orthopaedic Surgery Adult Reconstructive Orthopaedic Surgery; Visit Provider Orthopaedic Surgery Adult Reconstructive Orthopaedic Surgery
DX: M25.552 Pain in left hip
CPT/HCPCS: 77080

== ENCOUNTER → 2024-03-26 09:23 | Outpatient (CLI) | payer MEDICARE, BC, OTHER, SELFPAY ==
--- NOTE | 2024-03-26 09:26 | DI.RAD.S_ITS ---
PROCEDURE: XR LUMBAR SPINE MIN 4V INDICATIONS: BACK PAIN TECHNIQUE: 5 views of the lumbar spine were acquired, including bilateral oblique views. COMPARISON: None. FINDINGS: Five non rib-bearing lumbar vertebrae are present. Diffuse osseous demineralization. The vertebral body heights are preserved. Grade 2 anterolisthesis of L5 on S1 with bilateral pars interarticularis defects. Minimal levocurvature of the thoracolumbar spine with the apex at L2. Otherwise, the lumbar lordosis is preserved. Multilevel moderate-severe facet arthropathy, most conspicuous at L4-L5 and L5-S1. Multilevel hypertrophy of the spinous processes, most conspicuous at L4-L5 and L5-S1. Multilevel severe intervertebral disc height loss. Aortic vascular calcifications. Partially identified pacemaker wires overlying the thoracic spine. Severe left hip osteoarthritis with joint space remodeling. Mild right hip osteoarthritis. Partial ankylosis of the sacroiliac joints. IMPRESSION: 1. Multilevel lumbar osteoarthrosis, most conspicuous at L4-L5 and L5-S1, with pars interarticularis defect-related grade 2 anterolisthesis of L5 on S1. 2. Multilevel hypertrophy of the spinous processes which can be seen with Baastrup's disease. 3. Multilevel moderate-severe facet arthropathy. Dictated by: Darius Ventura M.D. on 03/26/2024 at 10:04 Approved by: Darius Ventura M.D. on 03/26/2024 at 10:06
== END ==
PROVIDERS: PCP Internal Medicine; Referring Provider Physical Medicine & Rehabilitation; Visit Provider Physical Medicine & Rehabilitation
DX: M47.816 Spondylosis without myelopathy or radiculopathy, lumbar region (principal); M47.817 Spondylosis without myelopathy or radiculopathy, lumbosacral region; M43.17 Spondylolisthesis, lumbosacral region; M16.0 Bilateral primary osteoarthritis of hip; M43.28 Fusion of spine, sacral and sacrococcygeal region; I70.0 Atherosclerosis of aorta; M54.9 Dorsalgia, unspecified; L03.113 Cellulitis of right upper limb; G14 Postpolio syndrome
CPT/HCPCS: 72110; 99214

== ENCOUNTER → 2024-04-01 10:37 | Outpatient (CLI) | payer MEDICARE, BC, OTHER, SELFPAY ==
[2024-04-01 11:34] LABS: Add Manual Diff / Slide Review NO; Basophils Absolute Auto 0 /uL (0-100); Basophils Percent Auto 0.6 % (0-2); Eosinophils Absolute Auto 100 /uL (0-450); Hematocrit 43.2 % (41-53); Hemoglobin 14.5 g/dL (13.5-17.5); Lymphocytes Absolute Auto 1400 /uL (1100-4500); Lymphocytes Percent Auto 18.3 % (25-40); Mean Corpuscular HGB Conc 33.6 % (30-36); Mean Corpuscular Hemoglobin 30.9 PG (26-34); Mean Corpuscular Volume 91.9 fL (80-100); Monocytes Absolute Auto 500 /uL (0-900); Monocytes Percent Auto 7.3 % (3-14); Neutrophils Absolute Auto 5400 /uL (1500-7000); Neutrophils Percent Auto 72.8 % (50-75); Platelet Count 220 X10^3/uL (150-400); Red Cell Distribution Width 13.3 % (11.6-14.8); White Blood Cell Count 7.4 X10^3/uL (4.5-11.0)
[2024-04-01 11:46] LABS: Appearance Urine UA CLEAR; Bilirubin Urine UA 1+ (NEGATIVE); Color Urine UA YELLOW; Glucose Urine UA NEGATIVE (Negative); Ketones Urine UA TRACE (NEGATIVE); Leukocyte Esterase Urine UA NEGATIVE (NEGATIVE); Nitrite Urine UA NEGATIVE (Negative); Occult Blood Urine UA NEGATIVE (Negative); Protein Urine UA TRACE (Negative); Specific Gravity Urine UA >=1.030 (1.000-1.035); Urobilinogen Urine UA 0.2 E.U./dL (0.2); pH Urine UA 5.5 (4.5-8.0)
[2024-04-01 11:57] LABS: Hemoglobin A1C% w Est Avg Glu 5.3 % (4.0-6.0)
[2024-04-01 11:59] LABS: BUN Creatinine Ratio 13.7 (6-22); Blood Urea Nitrogen 14 mg/dL (9-20); Calcium 9.4 mg/dL (8.4-10.2); Carbon Dioxide 25 mmol/L (22-32); Chloride 104 mmol/L (98-107); Estimated Glomerular Filt Rate > 60 mL/min (>60); Glucose 94 mg/dL (80-110); HEMOLYSIS < 15 (0-50); Potassium 4.4 mmol/L (3.4-5.1); Sodium 137 mmol/L (137-145)
[2024-04-01 12:04] LABS: Bacteria Urine None Seen; Culture Indicated Urine Cult Not Indicated; Ictotest Urine Negative (Negative); RBC Urine None Seen (0-5/HPF); Squamous Epithelial Cell Urine None Seen (0-5/HPF); Urine Volume 10mL (spun); WBC Urine 1-5/HPF (0-5/HPF)
== END ==
PROVIDERS: PCP Internal Medicine; Referring Provider Orthopaedic Surgery; Visit Provider Orthopaedic Surgery
DX: R73.9 Hyperglycemia, unspecified (principal); Z01.812 Encounter for preprocedural laboratory examination; N39.0 Urinary tract infection, site not specified
CPT/HCPCS: 36415; 80048; 81001; 83036; 85025

== ENCOUNTER 2024-05-20 06:04 | Day surgery (SDC) | payer MEDICARE, BC, OTHER, SELFPAY ==
[2024-05-07 12:08] VITALS: BMI 26.3
[2024-05-20] VITALS (13 sets, daily range): BP systolic 105–163; BP diastolic 59–92; PULSE 61–86; RESP 12–19; TEMP 36.6–37.3; O2SAT 94–99; BMI 25.5
--- NOTE | 2024-05-20 | DI.RAD.S_ITS ---
PROCEDURE: [id number] W PEL IF PERFORMED INDICATIONS: total left hip TECHNIQUE: AP pelvis with lateral view(s) of the 5 hip(s). COMPARISON: None. FINDINGS: Bones: No fractures or dislocations. No evidence of hardware complication status post total left hip arthroplasty. Pelvic ring appears intact. No suspicious bony lesions. Soft tissues: The visualized bowel gas pattern is normal. No suspicious soft tissue calcifications. IMPRESSION: No evidence of hardware complication or acute osseous abnormalities status post left hip total arthroplasty. Dictated by: Darius De La Vega M.D. on 05/21/2024 at 4:12 Approved by: Darius De La Vega M.D. on 05/21/2024 at 4:12
--- NOTE | 2024-05-20 06:15 | DI.RAD.S_ITS ---
PROCEDURE: XR HIP W PEL IF DONE LT 2V INDICATIONS: total left hip TECHNIQUE: 2 view(s) of the hip acquired. COMPARISON: None. FINDINGS: Bones: Patient is status post left hip arthroplasty, with hardware components in expected positions. The hip joint appears congruent. The visualized bony structures appear intact. Soft tissues: Overlying postoperative changes are noted. No suspicious soft tissue densities. IMPRESSION: Expected post-operative appearance of a hip arthroplasty. Dictated by: Kenji Olvera M.D. on 05/20/2024 at 11:04 Approved by: Kenji Olvera M.D. on 05/20/2024 at 11:04
[2024-05-20] MEDS: VANCOMYCIN 1,000 MG in SODIUM CHLORIDE 0.9% 250 ML 250 MG IV (07:22)
[2024-05-20] MEDS: ACETAMINOPHEN 325 MG TABLET 975 MG PO (07:23)
[2024-05-20] MEDS: CELECOXIB 200 MG CAPSULE PO (07:23)
[2024-05-20] MEDS: LACTATED RINGERS 1,000 ML 42 ML IV ×2 (07:44→09:57)
--- NOTE | 2024-05-20 07:47 | PM.PREOP ---
Pre-operative Note Interval Note History & Physical reviewed/Exam performed by Physician: Yes Changes to H&P: No
--- NOTE | 2024-05-20 07:47 | PM.OP.1 ---
Operative Date/Time/Diagnoses Date of procedure: 05/20/24 Time of procedure: 07:45 Pre-op diagnosis: left hip OA Post-op diagnosis: same Procedure & Clinicians Procedure: left total hip arthroplasty anterior approach Same procedure as scheduled: Yes Indications: The patient has had progressively worsening left hip pain with radiographic changes consistent with arthritis. Non-operative management has failed and the patient has requested total hip replacement. The risks, benefits and alternatives to surgery were discussed with the patient prior to proceeding. Risks discussed included, but were not limited to, failure to relieve pain, leg length discrepancy, dislocation, stiffness, infection, nerve damage, deep venous thrombosis, pulmonary embolism, stroke, coma, heart attack, permanent paralysis and , as well as the potential need for eventual revision of the prosthetic. Surgeon: Ailyn Levy Patient Support Partner: Evelyn Mcknight Anesthesia Type: General and Spinal Operative Notes Findings: Severe left hip OA with marked softening of the acetabulum, adequate bone in the femur, adequate stability Closure Type: primary Specimen(s): none sent Prosthetic devices, grafts, tissues, transplants, or devices: [employer] R3 size 56 cup, neutral poly liner,two 6.5 mm screws, size 1 polar stem standard offset with collar, +0 36 mm cobalt chrome head Estimated Blood Loss (mL): 250 Blood products transfused: none Procedure in detail: The patient was brought to the operating room. Patient was carefully positioned in the supine position. Time-out was performed and antibiotics were given. Anesthesia was induced. He was positioned in the on the table in order to allow hyperextension of the hip. The left lower extremity was prepped and draped in a standard sterile fashion. An anterior left hip incision was made 1 fingerbreadth lateral to the anterior superior iliac spine and extended distally towards the greater trochanter. Dissection was carried out through skin and subcutaneous tissues. Superficial hemostasis was achieved. The fascia over the tensor fascia robyn was defined and incised with a knife. Two Allis clamps were used to grasp the fascia. Tensor fascia robyn was retracted laterally. A gelpi retractor was placed. Dissection was carried out down along the neck. The circumflex vessels were carefully identified and cauterized with the Aqua Mantis. A PA was used during the procedure and was essential for intraoperative retraction and safe implantation of the components. There was good visualization of the femoral neck. A Cobra was placed superior to the neck and the gluteus fibers were carefully stripped from that superior aspect of the capsule. A 2nd retractor was placed along the inferior aspect of the neck. The rectus insertion along the capsule was partially released. A 3rd retractor that was then gently placed over the rim of the acetabulum under the rectus. Capsule was carefully incised and released from the intertrochanteric line circumferentially superior to the mid sagittal line and inferiorly to the mid sagittal line until the lesser trochanter was palpable. A tag stitch was placed both in the superior and inferior limb of the capsular insertion. Along the acetabulum capsule was also released up to the mid sagittal 12:00 position. A portion of the labrum was resected. A saw was used to perform an osteotomy at the level of the intertrochanteric line and the junction of the superior femoral neck leaving approximately 1 finger breath of residual inferior neck above the lesser trochanter. A 2nd cut was made along the femoral neck at the base of the head and a napkin ring of neck was removed. Corkscrew was placed in the femoral head and the head was removed without difficulty. Retractors were then repositioned around the acetabulum. Residual labrum was resected and additional osteophytes were removed. A reamer that was 4 mm below the templated size was placed by hand in the acetabulum and it was reamed to centralize the acetabulum. It was then reamed up to 2 under the templated size and fluoroscopy was brought in to confirm the position of the reaming and depth of reaming. I reamed 1 under the anticipated size. He had a soft acetabulum. A trial cup was placed and noted that it was appropriately sized and fluoroscopy confirmed position and depth. The component was open and inserted without difficulty fluoroscopic imaging was used to confirm that the cup had been adequately seated and was well positioned. It was further stabilized with 2 screws. Neutral poly liner was placed. The cup was tested and noted to be stable. Attention was then directed to the femur. The femur was gently hyperextended additional capsular release was performed as needed in order to allow adequate visualization of the proximal femur with elevation of the femur. Patient was placed in a hyperextended slightly adducted position with maximum external rotation. Box osteotome was used to check for any residual neck as well as sclerotic bone along the trochanter. [place] pepper was placed in the femur. Additional broaching was performed. Canal finder was used to determine the alignment of the canal and position. Size 1 broach was placed. The canal was then appropriately broached up to the templated size as long as there was adequate stability of the broach and serial advancement of the broach without excessive impingement. Specific attention was directed at avoiding varus attempting to direct the distal aspect of the broach more anteriorly and avoiding excessive anteversion. Trial reduction showed acceptable range of motion, good stability, no posterior impingement, pentecostalism of leg length and appropriate lateral shuck. I also hyperflexed the hip and checked that there was no impingement anteriorly and there was good stability with flexion, adduction and internal rotation. He had a fairly tight hip overall. It was not felt that he was a good candidate for a lateralized stem. Marcaine and Exparel were injected. The stem was placed without difficulty. Repeat trial reduction and x-ray showed acceptable overall position, length, and no evidence of the femoral fracture. Final head was placed. Wound was meticulously irrigated with normal saline. The hip was reduced and additional Exparel and Marcaine were injected. The capsule was closed with interrupted nonabsorbable sutures. The fascia of the tensor was closed with interrupted and running Vicryl. No drain was placed. Any tensor fascia robyn muscle that appeared to be contused or injured which was a minimal amount was carefully resected. Capsule around the tensor was injected with Exparel and Marcaine. The skin was closed with barbed stitches for the subcutaneous tissue and skin. We also used surgical glue. The wound was dressed sterilely. Brief Betadine soak was also used and was meticulously irrigated with normal saline. Patient was transferred to recovery room in satisfactory condition. Complications: none Post-operative Condition: stable Disposition: Acute Care Plan for aftercare: The patient will be maintained on a standard total hip replacement protocol with weight bearing as tolerated and anterior hip precautions. The patient will receive Eliquis and sequential compression devices for DVT prophylaxis. The patient will be discharged home when safe for the home environment.
[2024-05-20] MEDS: CEFAZOLIN 2 GM/100 ML PREMIX 100 ML IV ×2 (08:00→16:57)
[2024-05-20] MEDS: TRANEXAMIC ACID 1,000 MG VIAL 1000 MG INJ ×2 (08:10→10:06)
--- NOTE | 2024-05-20 08:29 | SUR.OPER ---
Supine on padded [place] table with bilateral legs secured in padded positioning boots and suspended in positioning spars, operative leg in traction per surgeon. Head on one pillow. Arm on non-operative side secured on padded armboard <90 degrees abduction. Arm on operative side padded and resting across chest then secured with tape over sheet. Padded perineal post in place per surgeon.
[2024-05-20] MEDS: BUPIVACAINE 0.25% W/ EPI 30 ML VIAL 60 ML INJ (08:37)
[2024-05-20] MEDS: BUPIVACAINE LIPOSOME 266 MG/20 ML VIAL INJ (08:38)
[2024-05-20] MEDS: hydrOXYzine 50 MG/ML INJ 25 MG IM (10:58)
[2024-05-20] MEDS: ONDANSETRON 4 MG/2 ML INJ IV (10:58)
[2024-05-20] MEDS: OXYCODONE IR 5 MG TABLET PO ×2 (10:59→20:17)
[2024-05-20] MEDS: LACTATED RINGERS 1,000 ML 100 ML IV (14:08)
--- NOTE | 2024-05-20 15:08 | PT.IIE ---
Current Diagnoses Unilateral primary osteoarthritis, left hip (05/20/24) Surgery Performed Operation Date: 05/20/24 07:45 Actual Procedures p Total Hip Arthroplasty/Anterior Approach(Left) - Ailyn Levy MD Surgical History (Last Reviewed 03/26/24 @ 11:40 by Ben Juarez DO) Hx of bilateral cataract extraction Hx of hernia repair Hx of tonsillectomy Medical History (Last Updated 05/07/24 @ 12:26 by Jane Mora RN) Afib Anesthesia complication Anxiety Cognitive decline Degenerative joint disease (DJD) of hip Glaucoma Hearing impaired History of chest pain History of pacemaker (12/19/23) HTN (hypertension) Hyperlipidemia Lumbosacral spondylosis Mobitz type 2 second degree heart block Nonrheumatic aortic (valve) stenosis Osteoarthritis PAF (paroxysmal atrial fibrillation) Panic attacks Paranoia Partial bowel obstruction Post-polio syndrome Pre-diabetes PTSD (post-traumatic stress disorder) Skin cancer Tachy-tonya syndrome Physical Therapy Inpatient Evaluation/Re-Eval M1 PT/OT-IP Prior Functional Status Start: 05/20/24 13:57 Freq: NEEDED Status: Active Protocol: Document 05/20/24 14:06 MB (Rec: 05/20/24 15:08 MB [id number]) Medical Review Prior Functional Status Medical History Reviewed Yes Diet/Fluid Consistency Regular Communication Currently, pt is very confused and reports that he is normal at baseline. Mobility and Gait reports that pt used RW or cane and could not fully WB on left leg at baseline d/t severe arthritis. She states that he was I for bathing and dressing and that she only allowed him to drive locally in [place] at baseline Activities of Daily Living and IADL's See comments above Social History Household Members spouse Living Arrangements House Number of Floors (Floors) One Floor Number of Stairs To Enter/Railing? 1 step up to bed and one step down inside the house. states there is a rail at the step down in the house Home Environment Standard Height Toilet,Walk in Shower Home Equipment Front Wheel Walker,Straight Cane,Raised Toilet Seat w/ Armrests,Shower Seat without Backrest,Hand Held Shower,Grab Bars In Shower Additional Social History Comment Pt is not working M2 PT-IP Current Condition Start: 05/20/24 13:57 Freq: NEEDED Status: Active Protocol: Document 05/20/24 14:06 MB (Rec: 05/20/24 15:08 MB [id number]) Physical Therapy Current Condition Current Condition Evaluation Date 05/20/24 Treatment Diagnosis L anterior ELSY M3 PT-IP Subjective Start: 05/20/24 13:57 Freq: NEEDED Status: Active Protocol: Document 05/20/24 14:06 MB (Rec: 05/20/24 15:08 MB [id number]) Subjective Physical Therapy Visit Type Type Initial Evaluation Visit Start Time 14:06 Visit Stop Time 14:46 Number of DRY BOX TENDER Visits 0 Physical Therapy Visit Comments Patient Comments Pt with a lot of confusion, has trouble answering all questions, continually interrupts simple functional mobility with, I have a question and then his questions do not always make sense or follow what is happening in the room Therapy Pain Assessment Pain When Pain Assessed At Rest Pain Present Pain Present Pain Reported Location Left hip Scale Used Pt cannot rate and appears to anticipate pain M4 PT-IP Mobility and Gait Start: 05/20/24 13:57 Freq: NEEDED Status: Active Protocol: Document 05/20/24 14:06 MB (Rec: 05/20/24 15:08 [id number]) PT-Bed Mobility Assessment Supine to Sit Supine to Sit Minimal Assistance,1 Person Assistance,Head of Bed Elevated,Bedrails Scooting Scooting to Edge of Bed Minimal Assistance PT-Transfer Assessment Sit to and From Stand Sit to and from Stand Moderate Assistance,1 Person Assistance,Use of Upper Extremities Equipment Transfer Assistive Device Gait Belt,Front Wheeled Walker Orthotic/Prosthetic Devices or Brace: No Transfers Transfer Destination Chair Transfer Technique Left stepping Transfer Ability Level of Assist Maximum Assistance,1 Person Assistance,Use of Upper Extremities Comments Mobility Comments Pt with strong posterior lean and decreased foot clearance, greatest on the left and pt is hesitant to WB through his left leg and PT helps pt shift his weight and step through the gait belt and PT must manage moving walker and keeping pt upright, pt with confusion and trouble following 1-step simple commands like, sit on the side of the bed, let's get up to the chair, step left, do you see the chair, etc Gait Assessment Gait Gait Assistance Required: Maximum Assistance,1 Person Assist Distance (Feet) 2 Able to Maintain Weight Bearing Status Yes During Gait Assistive Devices Assistive Device Gait Belt,Front Wheeled Walker Orthotic/Prosthetic Devices or Brace: No Gait Deviations General Gait Pattern Antalgic,Decreased Stride Length,Decreased Feet Clearance,Flexed Trunk,Narrow Based Gait,Step-to Gait Factors Limiting Gait Function Factors Limiting Gait Function Decreased Activity Tolerance, Decreased Strength,Difficulty Following Directions, Incoordination,Limited Range of Motion,Pain,Poor Balance, Poor Safety Awareness Comments Gait Comments See comments above PT-Balance Assessment Sitting Balance and Reactions Static Sitting Balance Ability Good Dynamic Sitting Balance Ability Fair Standing Balance and Reactions Static Standing Balance Ability Poor Dynamic Standing Balance Ability Poor Device Used RW and gait belt M5 PT-IP Objective Assessments Start: 05/20/24 13:57 Freq: NEEDED Status: Active Protocol: Document 05/20/24 14:06 MB (Rec: 05/20/24 15:08 [id number]) Orientation Orientation/Cognition Level of Alertness Confusional State Orientation Name,Age,Birthday,Month,Date, Year Safety Awareness Decreased Safety Awareness Memory Description 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,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 Comments He does not fully state what joint he has had surgery on and he thinks he is in [place] and then in the place where you go before you go Gross Range of Motion Upper Extremity ROM Impairments Defer to OT Lower Extremity ROM Assessment Bilaterally Impaired Impairments Very poor command-following d/ t confusion with attempted ROM and MMT, worse on the LLE with minimal AP and great toe extension Strength Lower Extremity Strength Assessment Bilaterally Impaired Comments Strength Comments Pt cannot follow commands well and is functionally weak Coordination Assessment Gross Coordination Gross Coordination Impaired Assessment Coordination Comments Pt cannot follow commands Sensation Assessment Comments Sensation Comments Pt cannot follow commands M6 PT-IP Treatment Start: 05/20/24 13:57 Freq: NEEDED Status: Active Protocol: Document 05/20/24 14:06 MB (Rec: 05/20/24 15:08 [id number]) Physical Therapy Treatment Education Education Provided Precautions,Weight Bearing Status,Post-Op Packet,Safety Equipment Issued Equipment Type and Company Reviewed no hyperextension and briefly showed post-op booklet but pt cannot understand training today and so did not push HEP, ed pt and that he will need to be moving a lot better before can safely d/c him home M7 PT-IP Assessment and Plan Start: 05/20/24 13:57 Freq: NEEDED Status: Active Protocol: Document 05/20/24 14:06 MB (Rec: 05/20/24 15:08 [id number]) PT Summary Assessment and Plan Potential Rehabilitation Potential Fair Status of Condition at Evaluation Evolving Summary Impairments Pain,ROM,Strength,Balance, Coordination,Sensation, Cognition,Bed Mobility, Transfers,Gait,Activity Tolerance Progress Towards Goals Slow Progress - Other Assessment Summary Pt is a 79 y/o male who presents very confused post-op and who has trouble following all simple 1-step functional commands. Unsure if he has a baseline cognitive issue. His states he does not but she also states that she limits his driving. Getting OOB to chair takes 40 minute d /t pt confusion and he con't interrupts tasks stating, I have a question. He requires max A to get up to the chair. He is currently most appropriate for SNF and can hopefully do better with PT next treatment date. Left with nearby, gown alarm on gown and communicated findings with nsg. Goals Bed Mobility Goal Independent Transfer Goal Standby Assistance,Front Wheeled Walker Gait Goal Standby Assistance,Front Wheel Walker Gait Distance 75 Other Goals If able and needed to get to bed room, can practice ascend and descend 1 step that is in the house with LRAD and no more than CGA. Can also practice stepping up on step to get into bed at home with no more than CGA. Days to Meet Goals 3 Frequency of Treatment Frequency Of Treatment Twice a Day Treatment Plan Physical Therapy Treatment Plan Bed Mobility Training,Transfer Training,Gait Training, Therapeutic Exercise,Balance Retraining,Post Op Education, Discharge Planning,Hot or Cold Pack,Neuromuscular Re-ed, Coordination Retraining,Manual Therapy Precautions Other Precautions No hyperextension Weight Bearing Status Weight Bearing Status Weight Bear as Tolerated Recommendations To Nursing Amount of Assist Needed 2 Person Assist Discharge Recommendations PT Discharge Recommendations Home with 24/ Assist Available,Home Health, Outpatient PT,Home vs SNF Other Discharge Recommendations Too early to say how pt will present at time of d/c. If he d/c today, would need SNF and cabulance Transportation Needs at Discharge Private Vehicle,Wheelchair/ Cabulance - PT assist x1-2
[2024-05-20] MEDS: ACETAMINOPHEN 325 MG TABLET 650 MG PO (15:48)
--- NOTE | 2024-05-20 16:27 | OT.IP.EVAL ---
Current Diagnoses Unilateral primary osteoarthritis, left hip (05/20/24) Surgery Performed Operation Date: 05/20/24 07:45 Actual Procedures p Total Hip Arthroplasty/Anterior Approach(Left) - Ailyn Levy MD Past Medical History (Last Updated 05/07/24 @ 12:26 by Jane Mora, RN) Afib Anesthesia complication Anxiety Cognitive decline Degenerative joint disease (DJD) of hip Glaucoma Hearing impaired History of chest pain History of pacemaker (12/19/23) HTN (hypertension) Hyperlipidemia Lumbosacral spondylosis Mobitz type 2 second degree heart block Nonrheumatic aortic (valve) stenosis Osteoarthritis PAF (paroxysmal atrial fibrillation) Panic attacks Paranoia Partial bowel obstruction Post-polio syndrome Pre-diabetes PTSD (post-traumatic stress disorder) Skin cancer Tachy-tonya syndrome Surgical History (Last Reviewed 03/26/24 @ 11:40 by Ben Juarez DO) Hx of bilateral cataract extraction Hx of hernia repair Hx of tonsillectomy Occupational Therapy Inpatient Evaluation/Re-Eval M1 PT/OT-IP Prior Functional Status Start: 05/20/24 13:57 Freq: NEEDED Status: Active Protocol: Document 05/20/24 16:30 [facility] (Rec: 05/20/24 16:44 [facility] [id number]) Medical Review Prior Functional Status Medical History Reviewed Yes Diet/Fluid Consistency Regular Communication Currently, pt is very confused and reports that he is normal at baseline. Mobility and Gait reports that pt used RW or cane and could not fully WB on left leg at baseline d/t severe arthritis. She states that he was I for bathing and dressing and that she only allowed him to drive locally in [place] at baseline Activities of Daily Living and IADL's See comments above Social History Household Members spouse Living Arrangements House Number of Floors (Floors) One Floor Number of Stairs To Enter/Railing? One step with bed rail into bed. One step with rail and standard walker on the otherwise to hold to step down to the TV room. Home Environment Standard Height Toilet,Walk in Shower Home Equipment Front Wheel Walker,Four Wheel Walker,Straight Cane,Raised Toilet Seat w/Armrests,Shower Seat without Backrest,Hand Held Shower,Va Underwriter,Sock Aid, Grab Bars In Shower M2 OT-IP Current Condition Start: 05/20/24 16:26 Freq: Status: Active Protocol: Document 05/20/24 16:30 [facility] (Rec: 05/20/24 16:44 [facility] [id number]) Occupational Therapy Current Condition Current Condition Evaluation Date 05/20/24 Treatment Diagnosis S/P L ELSY anterior approach Diagnosis Onset Date 05/20/24 Post Operative Precautions Other Precautions DO not hyperextend LLE M3 OT- IP Subjective and Pain Start: 05/20/24 16:26 Freq: Status: Active Protocol: Document 05/20/24 16:30 [facility] (Rec: 05/20/24 16:44 [facility] [id number]) OT- Subjective Occupational Therapy Visit Type Type Initial Evaluation Visit Start Time 15:35 Visit Stop Time 16:27 Occupational Therapy Visit Comments Patient Comments Pt agreed to stand and wanting to use the urinal. Patient/Caregiver Goals TO go home. OT Pain Assessment Pain When Pain Assessed At Rest Pain Present Pain Present Pain Reported M4 OT- IP ADL's Start: 05/20/24 16:26 Freq: Status: Active Protocol: Document 05/20/24 16:30 [facility] (Rec: 05/20/24 16:44 [facility] [id number]) OT [id number] Comments OT Self-Feeding Comments Not at meal time. OT ADL-Grooming Comments OT Grooming Comments Not performed. OT ADL-Oral Care Comments Oral Care Comments Not performed. OT ADL-Dressing General Eval Lower Body Dressing Ability Maximum Assistance Areas Needing Assistance Socks Comments OT Dressing Comments Pt has LB dressing equipment, otherwise his assist him usually 3x/week for socks/ shoes per . OT ADL-Toileting General Evaluation Toileting Ability Moderate Assistance Areas Needing Assistance Manage Clothing,Perform Perineal Hygiene Comments OT Toileting Comments MODA x1 to stand with the FWW and nursing aid able to hold the urinal in place for pt to use. OT ADL-Bathing Comments OT Bathing Comments Not performed. M5 OT- IP IADL's Start: 05/20/24 16:26 Freq: Status: Active Protocol: Document 05/20/24 16:30 [facility] (Rec: 05/20/24 16:44 [facility] [id number]) OT-Instrumental Activities of Daily Living Home Safety Awareness Home Safety Comments Pt is very groggy at this time . Medication Management Medication Management Caregiver Provides Supervision Money Management Money Management Caregiver Provides Supervision Meal Preparation Meal Preparation Caregiver Provides Assist Braille Coder Braille Coder Caregiver Provides Assist M6 OT- IP Functional Cognition Start: 05/20/24 16:26 Freq: Status: Active Protocol: Document 05/20/24 16:30 [facility] (Rec: 05/20/24 16:44 [facility] [id number]) Cognitive Factors Limiting Selfcare Function Cognitive Ability Level of Alertness Alert,Confusional State Patient Orientation Name,Place,Situation Attention Span Ability Capable of Focused Attention, Unable to Sustain Attention Ability to Follow Commands Able to Follow One Step Commands with Increased Time, Able to Follow One Step Commands with Repetition Memory Description 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 Cognitive Comments Cognitive Assessment Comments Pt is [place] and did not bring his hearing aids to the hospital for fear of losing them. Pt's states pt is not at his baseline and has lacked confidence in use of his LLE. Pt needing reassurance, vc, and concrete steps to follow. OT- Vision and Hearing OT- Hearing Assessment OT- Hearing Assessment Hearing Impaired OT- Vision Assessment Visual Acuity Glasses For Reading Visual Attentiveness WFL M7 OT- IP Mobility and Balance Start: 05/20/24 16:26 Freq: Status: Active Protocol: Document 05/20/24 16:30 [facility] (Rec: 05/20/24 16:44 [facility] [id number]) OT-Transfer Assessment Sit to and From Stand Sit to and from Stand Moderate Assistance,1 Person Assistance Comments Mobility Comments MODA X1 with FWW to stand to the FWW. Pt having difficulty to plan movements to move his feet in order to take a step forwards and back. Pt needing tactile and physical cues. At this time best to have two person assist for nursing for transfers only. Chair alarm attached to pt. OT- Balance Assessment Sitting Balance and Reactions Static Sitting Balance Ability Good Dynamic Sitting Balance Ability Fair Standing Balance and Reactions Static Standing Balance Ability Fair Dynamic Standing Balance Ability Poor Comments Other Balance Tests/Deviations/Treatment Pt heavily relies on his RLE : and BUE when standing up to the FWW and not putting much weight on his LLE. M8 OT- IP Objective Assessments Start: 05/20/24 16:26 Freq: Status: Active Protocol: Document 05/20/24 16:30 [facility] (Rec: 05/20/24 16:44 [facility] [id number]) OT Gross Range of Motion Upper Extremity Range of Motion Assessment Within Functional Limits OT Strength Upper Extremity Strength Assessment Within Functional Limits M9 OT- IP Assessment and Plan Start: 05/20/24 16:26 Freq: Status: Active Protocol: Document 05/20/24 16:30 [facility] (Rec: 05/20/24 16:44 [facility] [id number]) OT Summary Assessment and Plan Potential Rehabilitation Potential Good Analytic Complexity at Evaluation Low Summary OT Impairments Pain,Strength,Balance, Functional Cognition, Functional Mobility,Self- Feeding,Grooming,Dressing, Toileting,Bathing,Toilet Transfers,Shower Transfers, Activity Tolerance Progress Towards Goals Slow Progress due to Pain,Slow Progress due to Medical Issues,Slow Progress due to Activity Tolerance,Slow Progress due to Cognition Assessment Summary Pt low complexity and still appears to be recovering from sx as very groggy and fearful to use his LLE at this time. Pt main barriers are pain, strength, step, and confidence to be able to use his LLE. Pt 's states pt having to walk 20ft to get into the house. Pending progress, hopeful to go home. However, pt LLE still weak and all and would benefit from skilled rehab if having to go home today. Goals Self-Feeding Goal Independent Grooming Goal Independent Dressing Goal Independent,Va Underwriter,Sock Aid Toileting Goal Independent Bathing Goal Standby Assistance Toilet Transfer Goal Standby Assistance Shower Transfer Goal Contact Guard Assistance Days to Meet Goals 10 Frequency of Treatment Other frequency 5x/week Treatment Plan OT Treatment Plan ADL Training,Functional Cognition Training,Functional Mobility,Patient/Family Education,Discharge Planning Other Treatment Recommendations and Next Standing ADL's Treatment Focus Discharge Recommendations OT Discharge Recommendations SNF Rehab,Home vs SNF Other Discharge Recommendations Home with 24/ assist if moving better and able to assist pt safely. Transportation Needs at Discharge Private Vehicle,Wheelchair/ Cabulance
--- NOTE | 2024-05-20 19:17 | PC.NURSE ---
Sl mixed up and disoriented upon return from surgery. Forgot the questions he asked. Suspicious about what is happening and occurring. 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 confirms he does get paranoid at times. He has been less disoriented has he has been here. Did work with PT but not fully directable. Need two people for his safety. Has remained up in chair per his request with chair alarm on. Watching TV. Resting quietly. Tylenol for pain once, fair relief. Spouse reports pt has had hallucinations when taking narcotics.
[2024-05-20] MEDS: DOCUSATE 100 MG CAPSULE PO (20:17)
[2024-05-20] MEDS: BRIMONIDINE 0.2% OPHTH 5 ML 1 DROPS EYE-BOTH (20:17)
[2024-05-20] MEDS: METOPROLOL ER 50 MG TABLET PO (20:18)
[2024-05-20] MEDS: lisinopriL 10 MG TABLET PO (20:18)
[2024-05-21] MEDS: CEFAZOLIN 2 GM/100 ML PREMIX 100 ML IV (00:02)
[2024-05-21] MEDS: LACTATED RINGERS 1,000 ML 100 ML IV (00:02)
[2024-05-21] MEDS: ACETAMINOPHEN 325 MG TABLET 650 MG PO ×2 (03:16→09:26)
[2024-05-21] MEDS: OXYCODONE IR 5 MG TABLET PO ×2 (03:16→09:34)
[2024-05-21 05:57] LABS: Hematocrit 37.6 % (41-53)
[2024-05-21 08:00] VITALS: BP 149/79; PULSE 83; RESP 17; TEMP 36.7; O2SAT 98
--- NOTE | 2024-05-21 08:22 | PM.DS.1 ---
History of Present Illness History of Present Illness Date Patient Seen: 05/21/24 Time Patient Seen: 08:00 Chief complaint: Left ELSY anterior *OPB* Narrative: The patient has had progressively worsening left hip pain with radiographic changes consistent with arthritis. Non-operative management has failed and the patient has requested total hip replacement. The risks, benefits and alternatives to surgery were discussed with the patient prior to proceeding. Risks discussed included, but were not limited to, failure to relieve pain, leg length discrepancy, dislocation, stiffness, infection, nerve damage, deep venous thrombosis, pulmonary embolism, stroke, coma, heart attack, permanent paralysis and , as well as the potential need for eventual revision of the prosthetic. Discharge Providers Provider Discharge Date: 05/21/24 Primary care physician: Xena Melara MD Consults: 05/07/24 13:21 Consult to Anesthesiology Routine Comment: Consulting Provider: Anesthesiologist Reason for consultation: PAC courtesy re: Previously cx'd, needed cardiac evaluation 05/20/24 06:15 Consult to Anesthesiology Routine Comment: Consulting Provider: Anesthesiologist Reason for consultation: Regional block for post operative pain control Has provider been notified: No 05/20/24 11:47 Consult to Discharge Planning Routine Comment: Consult to Occupational Therapy Evaluate & Treat Comment: Physician Instructions: Evaluate and treat Consult to Physical Therapy Evaluate & Treat Comment: Physician Instructions: post op ELSY protocol Discharge provider: Sedrick Hung PA-C Summary Hospital Course Discharge Diagnosis: left hip OA Hospital Course: Procedure: left total hip arthroplasty anterior approach Same procedure as scheduled: Yes Surgeon: Ailyn Levy Chain Link Fence Installer: Evelyn Mcknight Anesthesia Type: General and Spinal Operative Notes Findings: Severe left hip OA with marked softening of the acetabulum, adequate bone in the femur, adequate stability Closure Type: primary Specimen(s): none sent Prosthetic devices, grafts, tissues, transplants, or devices: [employer] R3 size 56 cup, neutral poly liner,two 6.5 mm screws, size 1 polar stem standard offset with collar, +0 36 mm cobalt chrome head Estimated Blood Loss (mL): 250 Blood products transfused: none Status at Discharge Cognitive/behavioral status at discharge: at baseline, oriented Functional status at discharge: uses cane/walker Overall status at discharge: patient is progressing back to baseline Time Spent with Patient Time spent: Less than 30 minutes Exam Vital Signs (past 8 hours): Oxygen Delivery Method Room Air Oxygen Flow Rate 0 Narrative Exam Narrative: Patient's pain is controlled with oral medication. ?Pain is localized to surgical site. Also complains of cramping along left thigh. ?Patient declines any new numbness or tingling at the surgical extremity. ?Patient denies any shortness of breath, dizziness, light-headedness, nausea, vomiting, fever or chills. 5/5 strength in hip flexors, quadriceps, hamstrings, DF, PF, EHL right. 4/5 strength in hip flexors, quadriceps, hamstrings, 5/5 strength DF, PF, EHL, left. Sensation to light touch intact throughout BLE. Calves soft, compressible, nontender. Dressing placed intraoperatively CDI. 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) Afib Mobitz type 2 second degree heart block Lumbosacral spondylosis Degenerative joint disease (DJD) of hip Paranoia Anesthesia complication Hearing impaired Partial bowel obstruction Anxiety Panic attacks PTSD (post-traumatic stress disorder) Skin cancer Osteoarthritis Pre-diabetes History of chest pain Glaucoma Post-polio syndrome HTN (hypertension) Nonrheumatic aortic (valve) stenosis PAF (paroxysmal atrial fibrillation) Surgical History Hx of tonsillectomy Hx of hernia repair Hx of bilateral cataract extraction Social History household members: spouse Smoking Status: Former smoker alcohol intake: current Discharge Assessment & Plan Assessment and Plan Assessment: Status post left hip total arthroplasty Plan of Treatment: Discharge to home. ? Anterior Hip Pre-cautions. Ambulate and weight bear as tolerated with assistive devices. ? Eliquis 5 mg b.i.d. for DVT prevention? Baseline pain relief with acetaminophen 500mg every 4 hours as needed. ?Patient has been prescribed oxycodone 5 mg every 4 ?hours as needed for breakthrough pain. ? Prescribed hydroxyzine 25 mg q.6 hours PRN for postoperative spasm and nausea. Initiate physical therapy in the next 5-10 days. ? Keep dressing clean and dry. Keep dressing on until first office visit. If dressing becomes dirty or disrupted, replace with appropriate sized dressing. Follow up in clinic in 2 weeks for wound check. Contact clinic if there are any questions or concerns. Discharge Plan Discharge Plan Patient Disposition: Home Provider Discharge Comment: DC pending PT approval Discharge orders & Medications Discharge Orders: Discharge (Order); Ordered 05/21/24 Ordered By: Sedrick Hung Prescriptions: New hydroxyzine HCl 25 mg Tablet 25 mg PO Q6H PRN (Reason: Spasms) Qty: 40 0RF Continued magnesium oxide 400 mg magnesium Tablet 400 mg PO DAILY brimonidine [Alphagan P] 0.15 % drops See Rx Instructions .ROUTE .COMPLEX Rx Instructions: Instill 1 drop to both eyes twice a day Lumigan 0.01 % drops See Rx Instructions .ROUTE .COMPLEX Rx Instructions: Instill 1 drop to both eyes everyday at bedtime acetaminophen 325 mg Tablet 650 mg PO BID nitroglycerin 0.4 mg Tablet, Sublingual 0.4 mg SUBLINGUAL Q5-15M PRN (Reason: Chest Pain) Rx Instructions: do not exceed 3 doses per episode Eliquis 5 mg Tablet 5 mg PO BID lisinopril 10 mg tablet 10 mg PO BID metoprolol succinate 50 mg tablet extended release 24 hr 50 mg PO BID ketoconazole 2 % shampoo topical brimonidine 0.2 % drops 1 drp EYE-BOTH DAILY cholecalciferol (vitamin D3) 25 mcg (1,000 unit) capsule 25 mcg PO DAILY Follow up/Referrals: Ailyn Levy MD [Physician] - 06/02/24 11:30 am (Follow up w/ Evelyn Mcknight PA-C, at [facility] office in [place].) Xena Melara MD [Primary Care Provider] - Diet/Activity/Treatments Diet: Diet as Tolerated Activity: Weightbearing as tolerated. Cold/Heat Therapy: Ice to hip as needed for pain. Skin/Wound/Dressing Care Report to your healthcare provider any signs of infection, such as:: chills, fever, night sweats, unusual drainage and unusual redness Dressing: May shower. Leave dressing in place until follow up in office. No bathing or otherwise soaking incision. Call the office if the dressing becomes saturated inside. Visit Report/Discharge Packet Instructions: DI for Hip Replacement Stand Alone Forms: Patient Portal/API, Surgery Discharge Discharge Data Primary Care Provider: Xena Melara Attending Provider: Ailyn Levy
--- NOTE | 2024-05-21 08:45 | OT.IP.TRT ---
Current Diagnoses Unilateral primary osteoarthritis, left hip (05/20/24) Surgery Performed Operation Date: 05/20/24 07:45 Actual Procedures p Total Hip Arthroplasty/Anterior Approach(Left) - Ailyn Levy MD Occupational Therapy Treatment Note M2 OT-IP Current Condition Start: 05/20/24 16:26 Freq: Status: Active Protocol: Document 05/20/24 16:30 [facility] (Rec: 05/20/24 16:44 [facility] [id number]) Occupational Therapy Current Condition Current Condition Evaluation Date 05/20/24 Treatment Diagnosis S/P L ELSY anterior approach Diagnosis Onset Date 05/20/24 Post Operative Precautions Other Precautions DO not hyperextend LLE M3 OT- IP Subjective and Pain Start: 05/20/24 16:26 Freq: Status: Active Protocol: Document 05/21/24 09:12 [facility] (Rec: 05/21/24 09:25 [facility] [id number]) OT- Subjective Occupational Therapy Visit Type Type Treatment Note Visit Start Time 08:30 Visit Stop Time 09:12 Notes Pt seen with MANAGER SITE for part of the session. Occupational Therapy Visit Comments Patient Comments Pt agreed to get dressed and try the step with MANAGER SITE. Pt's present for caregiver training. Patient/Caregiver Goals TO go home. OT Pain Assessment Pain When Pain Assessed During Mobility Pain Present Pain Present Pain Reported Location Left hip Intensity 3 Scale Used Numeric (0 - 10) M4 OT- IP ADL's Start: 05/20/24 16:26 Freq: Status: Active Protocol: Document 05/21/24 09:12 [facility] (Rec: 05/21/24 09:25 [facility] [id number]) OT [id number] Comments OT Self-Feeding Comments Not at meal time. OT ADL-Grooming General Evaluation Grooming Ability Standby Assistance Comments OT Grooming Comments Pt able to brush his hair after set-up. OT ADL-Oral Care Comments Oral Care Comments Not performed. OT ADL-Dressing General Eval Upper Body Dressing Ability Moderate Assistance Lower Body Dressing Ability Maximum Assistance Areas Needing Assistance Managing Buttons,Underpants/ Brief,Pants/Shorts,Socks Comments OT Dressing Comments Pt's able to assist pt for lucille clothing. Educated to dress the LLE first and take out last. Suggested pt focus on his balance while assists with his clothing. OT ADL-Toileting Comments OT Toileting Comments Pt able to use the FWW over the toilet to urinate with SBA for his . M5 OT- IP IADL's Start: 05/20/24 16:26 Freq: Status: Active Protocol: Document 05/20/24 16:30 [facility] (Rec: 05/20/24 16:44 [facility] [id number]) OT-Instrumental Activities of Daily Living Home Safety Awareness Home Safety Comments Pt is very groggy at this time . Medication Management Medication Management Caregiver Provides Supervision Money Management Money Management Caregiver Provides Supervision Meal Preparation Meal Preparation Caregiver Provides Assist Medical Transport Specialist Medical Transport Specialist Caregiver Provides Assist M6 OT- IP Functional Cognition Start: 05/20/24 16:26 Freq: Status: Active Protocol: Document 05/21/24 09:12 [facility] (Rec: 05/21/24 09:25 [facility] [id number]) Cognitive Factors Limiting Selfcare Function Cognitive Ability Level of Alertness Alert,Confusional State Patient Orientation Name,Place,Situation Attention Span Ability Capable of Focused Attention, Unable to Sustain Attention Ability to Follow Commands Able to Follow One Step Commands with Increased Time, Able to Follow One Step Commands with Repetition Memory Description 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 Cognitive Comments Cognitive Assessment Comments Pt still having difficulty to follow commands and needing simple concrete cues. Pt's able to safely assist pt for all transfer, and ADL needs. M7 OT- IP Mobility and Balance Start: 05/20/24 16:26 Freq: Status: Active Protocol: Document 05/21/24 09:12 [facility] (Rec: 05/21/24 09:25 [facility] [id number]) OT-Transfer Assessment Sit to and From Stand Sit to and from Stand Contact Guard Assistance, Minimal Assistance Transfers Transfer Ability Contact Guard Assistance, Minimal Assistance,1 Person Assistance Technique Transfer Destination Bed,Chair,Toilet Transfer Technique Stand Step Pivot Devices Transfer Assistive Devices Gait Belt,Front Wheeled Walker Comments Mobility Comments Pt needing from CGA to MODA to stand and use the FWW. Pt still needing tactile,vc, and reassurance to follow commands . OT- Balance Assessment Sitting Balance and Reactions Static Sitting Balance Ability Good Dynamic Sitting Balance Ability Good Standing Balance and Reactions Static Standing Balance Ability Fair Dynamic Standing Balance Ability Fair M8 OT- IP Objective Assessments Start: 05/20/24 16:26 Freq: Status: Active Protocol: Document 05/20/24 16:30 [facility] (Rec: 05/20/24 16:44 [facility] [id number]) OT Gross Range of Motion Upper Extremity Range of Motion Assessment Within Functional Limits OT Strength Upper Extremity Strength Assessment Within Functional Limits M9 OT- IP Assessment and Plan Start: 05/20/24 16:26 Freq: Status: Active Protocol: Document 05/21/24 09:12 [facility] (Rec: 05/21/24 09:25 [facility] [id number]) OT Summary Assessment and Plan Potential Rehabilitation Potential Good Analytic Complexity at Evaluation Low Summary OT Impairments Pain,Strength,Balance, Functional Cognition, Functional Mobility,Self- Feeding,Grooming,Dressing, Toileting,Bathing,Toilet Transfers,Shower Transfers, Activity Tolerance Progress Towards Goals Progressing Toward Goals Assessment Summary Pt still confused at times but pt's able to assist with all ADL and mobility needs with good safety. Pt's concerned about pt's progressive decrease in cognition. Suggested pt's talk to pt's PCP and consider getting caregivers to assist. Pt to go home with 24/7 assist. Pt call light not placed on pt as pt'w present and cleared to assist pt. Goals Self-Feeding Goal Independent Grooming Goal Independent Dressing Goal Standby Assistance Toileting Goal Standby Assistance Bathing Goal Standby Assistance Toilet Transfer Goal Standby Assistance Shower Transfer Goal Contact Guard Assistance Days to Meet Goals 3 Treatment Plan OT Treatment Plan ADL Training,Functional Cognition Training,Functional Mobility,Patient/Family Education,Discharge Planning Discharge Recommendations OT Discharge Recommendations Home with 24/7 Assist Available,Outpatient PT Transportation Needs at Discharge Private Vehicle
--- NOTE | 2024-05-21 09:18 | PT.IPTN ---
Current Diagnoses Unilateral primary osteoarthritis, left hip (05/20/24) Surgery Performed Operation Date: 05/20/24 07:45 Actual Procedures p Total Hip Arthroplasty/Anterior Approach(Left) - Ailyn Levy MD Physical Therapy Treatment Note M2 PT-IP Current Condition Start: 05/20/24 13:57 Freq: NEEDED Status: Active Protocol: Document 05/21/24 07:44 AB (Rec: 05/21/24 09:17 AB [id number]) Physical Therapy Current Condition Current Condition Evaluation Date 05/20/24 Treatment Diagnosis L anterior ELSY M3 PT-IP Subjective Start: 05/20/24 13:57 Freq: NEEDED Status: Active Protocol: Document 05/21/24 07:44 AB (Rec: 05/21/24 09:17 AB [id number]) Subjective Physical Therapy Visit Type Type Treatment Note Visit Start Time 08:12 Visit Stop Time 08:55 Notes Co treat with OT Number of REAL ESTATE FINANCIAL ANALYST Visits 1 Physical Therapy Visit Comments Patient Comments Patient continues to require verbal cues, but performs better with directions such as walk to the window, step up, step down, difficulty with verbal cues to turn walker left or step right. Therapy Pain Assessment Pain When Pain Assessed At Rest Pain Present Pain Present Pain Reported M4 PT-IP Mobility and Gait Start: 05/20/24 13:57 Freq: NEEDED Status: Active Protocol: Document 05/21/24 07:44 AB (Rec: 05/21/24 09:17 AB [id number]) PT-Bed Mobility Assessment Supine to Sit Supine to Sit Maximum Assistance,1 Person Assistance,Bedrails Scooting Scooting to Edge of Bed Minimal Assistance PT-Transfer Assessment Sit to and From Stand Sit to and from Stand Contact Guard Assistance, Minimal Assistance,Moderate Assistance,1 Person Assistance Equipment Transfer Assistive Device Gait Belt,Front Wheeled Walker Orthotic/Prosthetic Devices or Brace: No Transfers Transfer Destination Chair Transfer Technique Left stepping Transfer Ability Level of Assist Minimal Assistance,1 Person Assistance,Use of Upper Extremities Comments Mobility Comments Patient transfers to chair with FWW with min assist WBAT L LE. Gait Assessment Gait Gait Assistance Required: Contact Guard Assist,1 Person Assist Distance (Feet) 43 Able to Maintain Weight Bearing Status Yes During Gait Assistive Devices Assistive Device Gait Belt,Front Wheeled Walker Orthotic/Prosthetic Devices or Brace: No Gait Deviations General Gait Pattern Decreased Stride Length, Decreased Feet Clearance, Flexed Trunk,Narrow Based Gait Factors Limiting Gait Function Factors Limiting Gait Function Decreased Strength,Difficulty Following Directions, Incoordination,Pain Stair Climbing Assessment Evaluation Level of Assist On Stairs Contact Guard Assistance,1 Person Assistance,2 Person Assistance Devices Stair Climbing Assistive Devices Front Wheel Walker Technique/Endurance Stair Climbing Direction Ascend and Descend Stair Climbing Technique Step to Step Number of Steps Climbed 1 Stair Climbing Set # Repetitions (reps) 3 Comments Stair Climbing Comments Patient ascends and descends on 6 inch step with FWW with CGA and verbal cues with therapist, then with providing cues and CGA and therapist also CGA. Also performed a step back ascending with FWW with giving cues CGA asl REAL ESTATE FINANCIAL ANALYST CGA as patient as a step to get into bed. PT-Balance Assessment Sitting Balance and Reactions Static Sitting Balance Ability Good Dynamic Sitting Balance Ability Good Standing Balance and Reactions Static Standing Balance Ability Good Dynamic Standing Balance Ability Good Device Used FWW and gait belt M5 PT-IP Objective Assessments Start: 05/20/24 13:57 Freq: NEEDED Status: Active Protocol: Document 05/21/24 07:44 AB (Rec: 05/21/24 09:17 AB [id number]) Orientation Orientation/Cognition Level of Alertness Confusional State Memory Description 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,Surveillance Camera Technician Impaired Comments Continues to have difficulty following cues with therapists and , will move FWW laterally when verbalizing back. Requests targets with where to move and does to better with walk to chair, step down, etc. M6 PT-IP Treatment Start: 05/20/24 13:57 Freq: NEEDED Status: Active Protocol: Document 05/21/24 07:44 AB (Rec: 05/21/24 09:17 AB [id number]) Physical Therapy Treatment Education Education Provided Precautions,Weight Bearing Status,Post-Op Packet,Safety Equipment Issued Equipment Type and Company Reviewed no hyperextension. Patient/family ed to use FWW at all times and to defer use of cane until cleared by outpatient physical therapy. M7 PT-IP Assessment and Plan Start: 05/20/24 13:57 Freq: NEEDED Status: Active Protocol: Document 05/21/24 07:44 AB (Rec: 05/21/24 09:17 AB [id number]) PT Summary Assessment and Plan Potential Rehabilitation Potential Good Status of Condition at Evaluation Evolving Summary Impairments Pain,ROM,Strength,Balance, Coordination,Sensation, Cognition,Bed Mobility, Transfers,Gait,Activity Tolerance Progress Towards Goals Progressing Toward Goals Assessment Summary Pt is a 79 y/o s/p ant hip replacement L LE, continues to have difficulty with 1 step functional commands, but was able to perform ambulation with CGA with FWW 42 feet, and ascend and descend a step with CGA with and with therapist, and also step back up onto a step with and therapist CGA this session. Patient rates pain 3-5/10 during while seated start of session, post transfer seated in chair and end of session seated EOB (3/10 end of session. ) Patient left with OT, Nursing and . Goals Bed Mobility Goal Independent Transfer Goal Standby Assistance,Front Wheeled Walker Gait Goal Standby Assistance,Front Wheel Walker Gait Distance 75 Other Goals If able and needed to get to bed room, can practice ascend and descend 1 step that is in the house with LRAD and no more than CGA. Can also practice stepping up on step to get into bed at home with no more than CGA. Days to Meet Goals 3 Frequency of Treatment Frequency Of Treatment Twice a Day Treatment Plan Physical Therapy Treatment Plan Bed Mobility Training,Transfer Training,Gait Training, Therapeutic Exercise,Balance Retraining,Post Op Education, Discharge Planning,Hot or Cold Pack,Neuromuscular Re-ed, Coordination Retraining,Manual Therapy Precautions Other Precautions DO not hyperextend LLE Weight Bearing Status Weight Bearing Status Weight Bear as Tolerated Recommendations To Nursing Amount of Assist Needed 1 Person Assist Discharge Recommendations PT Discharge Recommendations Home with 11/09 Assist Available,Home Health, Outpatient PT,Home vs SNF Transportation Needs at Discharge Private Vehicle,Wheelchair/ Cabulance - PT assist x1-2
[2024-05-21 09:26] VITALS: BP 149/79; PULSE 83
[2024-05-21] MEDS: MAGNESIUM OXIDE 400 MG TABLET PO (09:26)
[2024-05-21] MEDS: lisinopriL 10 MG TABLET PO (09:26)
[2024-05-21] MEDS: CHOLECALCIFEROL (VITAMIN D3) 1,000 UNIT TABLET 1000 UNIT PO (09:26)
[2024-05-21] MEDS: DOCUSATE 100 MG CAPSULE PO (09:27)
[2024-05-21] MEDS: METOPROLOL ER 50 MG TABLET PO (09:27)
[2024-05-21] MEDS: BRIMONIDINE 0.2% OPHTH 5 ML 1 DROPS EYE-BOTH (09:35)
--- NOTE | 2024-05-21 10:51 | CM.DANOTE ---
Initial DCP Assessment Visit Note Reviewed EMR and team rounds for status updates. Met with pt briefly at bedside to introduce self and role, pt was working with PT at the time of this visit. Pt resides independently in his own home with his spouse in [place]. He has been medically cleared for d/c today, and his will transport him home following cg training with PT. Pt does have OP PT and his Ortho f/u visits made. No CM d/c needs are identified at this time. Payor: Medicare Attending: Dr. Ailyn Levy Pt is a 79 year-old M with a hx of worsening L-hip pain, that has not improved despite conservative efforts at pain control. His surgery went well without any postoperative complications, other than some confusion the morning after surgery, yesterday. He has improved cognitively back to baseline, no pain issues noted. He does share that he has a walker at home, as well as all the other necessary DME necessary for his home recovery needs. 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 Yes Advance Directives on File No History Provided By Patient,Medical Record Has Patient been admitted in last 30 No days? Prior Living Arrangements House Household Members spouse Type of transporation used prior to Drives own vehicle admit Comment In town driving only. Independent with ADL's Yes Is patient alert and oriented? Yes Caregiver for Another No DME Already Rented / Owned Bath Bench,Elevated Toilet Seat,FWW / Walker,Cane Patient/Family Preference OP PT Therapy Barriers to Discharge No Discharge Plan Home Referrals Initiated None needed Whiteboard Updated in Patient Room with Yes name and ext. # of Commercial Shrimping Captain Review Status In Process Please Provide Date Initial DC 05/21/24 Assessment Was Performed Pre-Anesthesia Assessment Start: 05/07/24 12:08 Freq: Status: Complete Protocol: Document 05/07/24 12:08 CAB (Rec: 05/07/24 13:20 CAB [id number]) Pre-Anesthesia Assessment PAC Comment Phone assess Patient Information Reviewed Via Phone Assessment Assessment Completed With Patient,Spouse Diagnostic Results BMP/CMP,CBC,EKG Comment Labs @ [facility] 04/01/24 Outside EKG 01/03/24 (prior to pacemaker) scanned Primary Care Provider Xena Melara Seen Specialist in Last 12 Months Yes Specialist Seen Terrazzo Grinder,Controlled Area Checker, Orthopedist,Other Comment Neurology clearance form scanned and in surgery folder Primary Language Canadian Ribber Required No Height 176.53 cm Weight 82.1 kg Body Mass Index (BMI) 26.3 Hearing Ability Hearing Impaired,Use of Hearing Aid Visual Assist Glasses Dentition Type Teeth, Natural Present,Teeth, Broken,Teeth, Missing Barriers to Learning Auditory,Visual Comment Hx of cognitive decline Hx Anesthesia Reactions Yes: PONV Hx Family Anesthesia Reaction No Hx Malignant Hyperthermia No Hx Blood Transfusions No Anesthesia Review Requested Yes: PAC courtesy re: Previously cx'd-needed cardiac eval Condemnation Engineer No alcohol intake current alcohol intake frequency a few times a week Smoking Status Former smoker how long ago did patient quit smoking Quit 35 years ago Substance Use Type [#R] does not use Pain Present Pain Reported Musculoskeletal Symptoms Abnormal Gait,Back Pain, Difficulty Walking,Joint Pain History of Falling (Recent or History of No ) Patient is completely paralyzed or No completely immobile Prosthesis or Orthotic Device Front Wheel Walker Mental Status Oriented to own ability Is patient on oxygen? No Does patient have COOPER/SOB Yes Hx Sleep Apnea No CPAP/BIPAP use not prescribed Currently Taking a Beta Eliud Yes: Metoprolol Hx Chest Pain Yes Hx SOB Yes Hx Syncope or Dizziness No Anti-Coagulant Therapy Yes: Albinis-advised to hold 2 hours per cardiology Has a Terrazzo Grinder Yes: Pre-op visit 04/11/[address] Castellanos Cardiac Testing Yes Hx Pacemaker/ICD Yes Pacemaker Rep Required? 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 Yes Marital Status Lives With spouse Current Living Arrangements House Number of Floors (Floors) One Floor Support System Spouse Does the Patient Have Assistance After Yes Surgery Patient Discharge Plan Description Return Home Comment Pt advised 2-3 day length of stay per surgeon Feels Safe in Current Environment No Been Physically Hurt or Threatened By a No Person in Current Environment Do you have thoughts of harming yourself None or others? Are you currently considering suicide? 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 Do You Have Any Cultural Practices That No May Affect Your HC Choices? Who Can We Speak to About Patient's Care Family, friends Identifying Code for Release of Patient Bradley Information Health Care Proxy/Next of Kin Keila () Health Care Proxy Emergency Contact Name Keila () Emergency Contact Advance Directives? Yes Advance Directives on File No Requested Patient Bring Advanced Yes Directives DOS Power of Crab Steamer Yes Power of Crab Steamer Name Keila () Power of Crab Steamer PAC Instructions Assistance for 24 hours post- op,Durable medical equipment, Medications to take/avoid, Nasal antibiotic,No ETOH/ petroleum product on skin DOS, NPO,Post-op transportation,Pre -surgical wash,Sensory aids, Sturdy shoes/comfortable clothes,Do not bring valuables and remove jewelry
--- NOTE | 2024-05-21 11:37 | PC.NURSE ---
Day shift: DIscharge instructions gone over with patient and patient's spouse. All questions answered, they both stated understanding. PIV removed prior to discharge. All belongings with patient. HELEN Ny escorted patient to exit via wheelchair.
== END 2024-05-21 11:00 | disposition home or self-care (01) ==
LOC: OR 06:05 → AC 06:06
PROVIDERS: PCP Internal Medicine; Referring Provider Orthopaedic Surgery; Visit Provider Orthopaedic Surgery
PROC: (CPT 27130; principal; 2024-05-20 07:45)
DX: M16.12 Unilateral primary osteoarthritis, left hip (principal); Z87.891 Personal history of nicotine dependence; M25.752 Osteophyte, left hip
CPT/HCPCS: 27130; 36415; 73502; 73503; 76000; 85014; 85018; 97162; 97166; 97530; 97535; C1776; J0666; J0690; J1100; J1885; J2250; J2405; J2704; J3410

== ENCOUNTER → 2024-11-18 09:37 | Outpatient (CLI) | payer MEDICARE, BC, OTHER, SELFPAY ==
[2024-05-20 14:44] VITALS: BMI 25.5
--- NOTE | 2024-11-18 09:39 | DI.CT.S_ITS ---
PROCEDURE: CT ANGIO HEAD AND NECK INDICATIONS: occipital stroke TECHNIQUE: After the administration of intravenous contrast, 1 mm thick sections acquired from the aortic arch through the [place] of [place]. 3-dimensional pwbeduo-hryhjzkga-mhagfaxrgp (MIP) and/or volume rendering reformats were acquired of the central intracranial vasculature and neck separately. For radiation dose reduction, the following was used: automated exposure control, adjustment of mA and/or kV according to patient size. COMPARISON: [facility], CT, CT HEAD/BRAIN WO CON, 11/18/2024, 11:11. [facility], MR, MR HEAD/BRAIN WO CON, 03/29/2023, 13:14. FINDINGS: Image quality: Limited by bolus timing, with venous contamination. There is artifact associated with the metallic dental work. Cerebral CT Angiogram: Internal carotid arteries: No acute findings. Intracranial ICA are patent with no significant stenosis. No occlusion. No aneurysm. Anterior cerebral arteries: Unremarkable. No significant stenosis. No occlusion. No aneurysm. Middle cerebral arteries: Unremarkable. No significant stenosis. No occlusion. No aneurysm. Posterior cerebral arteries: Unremarkable. No significant stenosis. No occlusion. No aneurysm. Basilar artery: Unremarkable. No significant stenosis. No occlusion. No aneurysm. Vertebral arteries: Unremarkable as visualized. Dural venous sinuses: Unremarkable given phase of enhancement. Other: Arterial phase appearance of the brain parenchyma is unremarkable. Neck CT Angiogram: Internal carotid arteries: Atherosclerotic irregularity and calcification can be seen involving the carotid bifurcation regions. There is 50-60% narrowing seen involving the left proximal internal carotid artery. No hemodynamically significant stenosis can be seen on the right. No significant stenosis. No dissection or occlusion. Common carotid arteries: Unremarkable. No significant stenosis. No dissection or occlusion. External carotid arteries: Unremarkable. No occlusion. Vertebral arteries: Unremarkable. No significant stenosis. No dissection or occlusion. Aortic Arch and Mediastinum: Partially visualized aortic arch unremarkable without evidence of aneurysm. Origins of the great vessels unremarkable. Other: Arterial phase soft tissues of the neck and chest are unremarkable. At least moderate cervical spine degenerative change can be seen. There is a left-sided pacer device. IMPRESSION: No significant intracranial arterial abnormality is seen. Calcification can be seen involving the carotid bifurcation regions, with 50-60% narrowing on the left. No significant vertebral artery abnormality is seen. Additional findings: At least moderate cervical spine degenerative change Left-sided pacer device Any quantitative measurements of stenosis were performed using NASCET criteria. Dictated by: Jose Guadalupe Nguyen M.D. on 11/18/2024 at 15:55 Approved by: Jose Guadalupe Nguyen M.D. on 11/18/2024 at 15:59
--- NOTE | 2024-11-18 09:39 | DI.CT.S_ITS ---
PROCEDURE: CT HEAD/BRAIN WO CON INDICATIONS: occipital stroke TECHNIQUE: Noncontrast 4.5 mm thick angled axial sections acquired from the foramen magnum to the vertex, with coronal and sagittal reformats. For radiation dose reduction, the following was used: automated exposure control, adjustment of mA and/or kV according to patient size. COMPARISON: [facility], MR, MR HEAD/BRAIN WO CON, 03/29/2023, 13:14. [facility], CT, CT ANGIO HEAD AND NECK, 11/18/2024, 11:11. FINDINGS: Image quality: Diagnostic. CSF spaces: Basal cisterns are patent. No extra-axial fluid collections. The ventricles are symmetric in size and shape. Brain: No intracranial bleeds or mass effect. There is cerebral volume loss, with resultant ventricular and sulcal prominence. There are periventricular and deep white matter chronic small vessel ischemic changes. There is intracranial internal carotid artery atherosclerosis. Skull and face: Calvarium and visualized facial bones appear intact, without suspicious lesions. Sinuses: Visualized sinuses and mastoids are clear. IMPRESSION: No scott prior infarction can be seen. Dictated by: Jose Guadalupe Nguyen M.D. on 11/18/2024 at 15:52 Approved by: Jose Guadalupe Nguyen M.D. on 11/18/2024 at 15:55
[2024-11-18 10:24] LABS: Estimated Glomerular Filt Rate > 60 mL/min (>60)
== END ==
LOC: CT 09:38
PROVIDERS: PCP Internal Medicine; Referring Provider Internal Medicine; Visit Provider Internal Medicine
DX: I63.9 Cerebral infarction, unspecified (principal); I65.22 Occlusion and stenosis of left carotid artery; M47.817 Spondylosis without myelopathy or radiculopathy, lumbosacral region; Z95.0 Presence of cardiac pacemaker
CPT/HCPCS: 36415; 70450; 70496; 70498; 82565; Q9967